=== PATIENT | female | born 1985 | race Caucasian/White ===

== ENCOUNTER 2018-04-16 10:16 | Outpatient (CLI) | payer OTHER, SELFPAY ==
[2018-04-17 11:45] LABS: Syphilis Serology (RPR) Negative (Negative)
[2018-04-17 12:22] LABS: HIV-1/2 Ag & Ab Screen Negative (NEGAT)
== END 2018-04-16 10:36 ==
PROVIDERS: Visit Provider Obstetrics & Gynecology
DX: Z72.51 High risk heterosexual behavior (principal); Z11.4 Encounter for screening for human immunodeficiency virus [HIV]
CPT/HCPCS: 36415; 87389; 86592

== ENCOUNTER 2018-04-16 12:27 | Outpatient (REF) | payer OTHER, SELFPAY ==
--- NOTE | 2018-04-16 09:50 | PAPFT_PTH ---
PATIENT: Carolyn Olivas LOC: [facility] U#:[id number] AGE/SX: 32/F ROOM: RE04/16/[address]: Aretha Duarte MD : 1985 BED: DIS: 04/16/2018 SPEC #: [id number] RECD: 04/16/18 12:49 STATUS: BECK REQ #: [id number] BRANDIN: 04/16/18 09:[address]: Aretha Duarte DEPT: [facility] Cytology RECD BY: Sera Castle ENTERED: 04/16/18 12:49 SP TYPE: PAPFT OT DR: None Tissues: 1 - CX/ENDOCX FOR PAP SMEARS Procedures: PAP THIN PREP/UVM Screening HPV DNA PROBE Comments: [id number]
[2018-04-17 14:12] LABS: Chlamydia Result Negative; GC Result Negative; Specimen Description CERVIX
== END 2018-04-16 12:47 ==
LOC: LBN 12:27
PROVIDERS: Visit Provider Obstetrics & Gynecology
DX: Z12.4 Encounter for screening for malignant neoplasm of cervix (principal); Z11.51 Encounter for screening for human papillomavirus (HPV); Z11.3 Encounter for screening for infections with a predominantly sexual mode of transmission; Z72.51 High risk heterosexual behavior
CPT/HCPCS: 87491; 87591; 88142; 87624

== ENCOUNTER 2019-03-21 16:04 | Outpatient (REF) | payer OTHER, SELFPAY | END 2019-03-21 16:24 | LOC: LBN 16:04 | PROVIDERS: Visit Provider Obstetrics & Gynecology | DX: B37.3 Candidiasis of vulva and vagina (principal) | CPT/HCPCS: 87102; 87206; 87480; 87510; 87660 ==

== ENCOUNTER 2021-08-18 08:57 | Outpatient (REF) | payer OTHER, SELFPAY ==
--- NOTE | 2021-08-18 08:30 | PAPFT_PTH ---
PATIENT: Carolyn Olivas LOC: [facility] U#:[id number] AGE/SX: 35/F ROOM: RE08/18/[address]: LISANDRO Dumont : 1985 BED: DIS: 08/18/2021 SPEC #: [id number] RECD: 08/18/21 13:04 STATUS: BECK DASH #: [id number] BRANDIN: 08/18/21 08:[address]: Belle Mae DEPT: [facility] Cytology RECD BY: Sera Castle Tissues: 1 - CX/ENDOCX FOR PAP SMEARS Procedures: PAP THIN PREP/UVM Screening HPV DNA PROBE Comments: [id number]
== END 2021-08-18 08:58 | disposition home or self-care (01) ==
LOC: LBN 08:57
PROVIDERS: Visit Provider Nurse Practitioner Family
DX: Z12.4 Encounter for screening for malignant neoplasm of cervix (principal); Z11.51 Encounter for screening for human papillomavirus (HPV)
CPT/HCPCS: 88142; 87624

== ENCOUNTER → 2023-01-30 08:47 | Outpatient (CLI) | payer OTHER, SELFPAY ==
--- NOTE | 2023-01-30 08:30 | DI.US_ITS ---
Exam(s) US OB 1ST TRIMESTER EXAM: US OB 1ST TRIMESTER CLINICAL HISTORY: spotting in , Z34.90, 020.9. COMPARISON: No exams were available for comparison TECHNIQUE: Transabdominal Transvaginal first trimester obstetrical ultrasound performed. FINDINGS: There is a single living intrauterine gestation. Estimated sonographic age based on crown-rump lengt h is 6 weeks 4 days. The yolk sac was visualized. heart rate is 124 beats per minute. Pelvic Measurments Uterus: 9.6 x 4.8 x 5.9 cm Rt Ovary: 3.4 x 2.2 x 3.1 cm Lt Ovary: 3.7 x 1.7 x 2.2 cm There is a corpus luteal cyst seen on the right ovary. IMPRESSION: Single living intrauterine gestation with estimated sonographic age is 6 weeks 4 days. DATA REPOSITORY:
[2023-01-30 14:27] LABS: HCG Quant, Pregnancy 32078 mIU/mL (1-3)
== END ==
PROVIDERS: Visit Provider Advanced Practice Midwife
DX: O20.9 Hemorrhage in early pregnancy, unspecified (principal); Z34.91 Encounter for supervision of normal pregnancy, unspecified, first trimester
CPT/HCPCS: 36415; 76801; 84702

== ENCOUNTER 2023-03-02 02:04 | Outpatient (CLI) | payer OTHER, SELFPAY ==
[2023-03-02 10:33] LABS: Panorama Kit Sent via Fed Ex
[2023-03-02 10:46] LABS: Abs Immature Grans 0.03 10^3/uL (0.0-0.06); Absolute Basophil Count 0.02 10^3/uL (0.0-0.2); Absolute Eosinophil Count 0.09 10^3/uL (0.0-0.7); Absolute Lymphocyte Count 1.29 10^3/uL (1.2-3.4); Absolute Monocyte Count 0.56 10^3/uL (0.1-0.8); Absolute Neutrophil Count 5.22 10^3/uL (1.2-6.7); Basophils % 0.3; Eosinophils % 1.2; HCT 41.7 % (36.0-46.0); HGB 14.6 g/dL (11.2-15.7); Immature Grans % 0.4; Lymphocytes % 17.9; MCH 32.5 pg (27.0-33.0); MCV 93 fL (80-95); MPV 8.4 fL (8.0-11.0); Monocytes % 7.8; Neutrophils % 72.4; Platelet Count 280 10^3/uL (130-400); RBC 4.49 10^6/uL (3.93-5.22); RDW-SD 41.2 fL; WBC 7.21 10^3/uL (4.4-10.8)
[2023-03-02 10:57] LABS: Glucose,1 Hr (Glucola) 77 mg/dL (80-140)
[2023-03-02 11:35] LABS: TSH (W/Ref FT4) 4.18 uIU/mL (0.36-3.74)
[2023-03-02 11:53] LABS: FREE T4 0.87 ng/dL (0.76-1.46)
[2023-03-05 09:28] LABS: Varicella IgG Antibody Positive (See Note)
[2023-03-05 09:33] LABS: Rubella IgG Ab (UVM) Positive (See Note)
[2023-03-05 09:50] LABS: Thyroperoxidase Antibody <28 U/mL (<=60)
[2023-03-05 10:57] LABS: Hepatitis B Surface Ag Negative (Negative)
[2023-03-05 11:22] LABS: HIV-1/2 Ag & Ab Screen Negative (Negative)
[2023-03-05 11:30] LABS: Hepatitis C Ab w Rflx HCV PCR Negative (Negative)
[2023-03-05 21:25] LABS: Syphilis IgG w/Reflex Nonreactive (Nonreactive)
[2023-03-07 17:32] LABS: Specimen WB Whole Blood
[2023-03-12 13:03] LABS: Result Summary NEGATIVE; Specimen WB Whole Blood
== END 2023-03-02 02:05 | disposition home or self-care (01) ==
LOC: LBO 02:04
PROVIDERS: Visit Provider Advanced Practice Midwife
DX: Z34.01 Encounter for supervision of normal first pregnancy, first trimester (principal); R79.89 Other specified abnormal findings of blood chemistry
CPT/HCPCS: 36415; 81220; 81222; 81329; 82950; 86787; 86803; 86850; 86900; 86901; 87340; 87389; 84439; 84443; 85025; 86376; 86762; 86780

== ENCOUNTER 2023-03-02 10:27 | Outpatient (REF) | payer OTHER, SELFPAY ==
[2023-03-02 11:58] LABS: *AMPHETAMINES SCREEN URINE Negative (Negative); *BARBITURATES SCREEN URINE Negative (Negative); *BENZODIAZEPINES SCREEN URINE Negative (Negative); Cannabinoids THC Negative (Negative); Cocaine Screen,Urine Negative (Negative); METHADONE URINE SCREEN Negative (Negative); OPIATES URINE SCREEN Negative (Negative)
[2023-03-02 12:02] LABS: Tricyclic Antidepressants Negative (Negative)
[2023-03-03 14:47] LABS: Chlamydia Result Negative (Negative); GC Result Negative (Negative)
[2023-03-07 13:04] LABS: Buprenorphine Negative ng/mL (Cutoff: 5.0); Norbuprenorphine Negative ng/mL (Cutoff: 2.5)
== END 2023-03-02 10:28 | disposition home or self-care (01) ==
LOC: LBN 10:27
PROVIDERS: Visit Provider Advanced Practice Midwife
DX: Z34.91 Encounter for supervision of normal pregnancy, unspecified, first trimester (principal)
CPT/HCPCS: 80307; 80348; 87491; 87591; 87086

== ENCOUNTER 2023-03-30 02:23 | Outpatient (CLI) | payer OTHER, SELFPAY ==
[2023-03-30 10:59] LABS: TSH (W/Ref FT4) 3.74 uIU/mL (0.36-3.74)
== END 2023-03-30 02:24 | disposition home or self-care (01) ==
LOC: LBO 02:23
PROVIDERS: Advanced Practice Midwife; Visit Provider Advanced Practice Midwife
DX: Z34.92 Encounter for supervision of normal pregnancy, unspecified, second trimester (principal); R79.89 Other specified abnormal findings of blood chemistry; R53.83 Other fatigue; Z3A.15 15 weeks gestation of pregnancy
CPT/HCPCS: 36415; 84443

== ENCOUNTER 2023-06-21 00:51 | Outpatient (CLI) | payer OTHER, SELFPAY ==
[2023-06-21 08:52] LABS: HCT 37.3 % (36.0-46.0); HGB 12.9 g/dL (11.2-15.7); MCH 33.9 pg (27.0-33.0); MCHC 34.6 % (32.0-36.0); MCV 98 fL (80-95); MPV 8.2 fL (8.0-11.0); Platelet Count 229 10^3/uL (130-400); RDW 13.2 % (11.7-14.6); RDW-SD 46.8 fL; WBC 9.66 10^3/uL (4.4-10.8)
[2023-06-21 09:01] LABS: Glucose,1 Hr (Glucola) 129 mg/dL (80-140)
[2023-06-21 09:16] LABS: TSH (W/Ref FT4) 2.85 uIU/mL (0.36-3.74)
[2023-06-21 09:59] LABS: Lab Add On Test DONE
== END 2023-06-21 00:52 | disposition home or self-care (01) ==
LOC: LBO 00:51
PROVIDERS: Advanced Practice Midwife; Visit Provider Advanced Practice Midwife
DX: O26.899 Other specified pregnancy related conditions, unspecified trimester (principal); Z67.91 Unspecified blood type, Rh negative; R79.89 Other specified abnormal findings of blood chemistry
CPT/HCPCS: 36415; 82950; 85027; 86850; 90384; 84443

== ENCOUNTER 2023-07-04 09:25 | Outpatient (CLI) | payer OTHER, SELFPAY ==
[2023-07-04 09:35] VITALS: BP 120/70; PULSE 90; TEMP 36.8
--- NOTE | 2023-07-04 15:03 | W.OBNST ---
Date of service: 07/04/23 Time of Service: 10:00 NST Evaluation Reason for NST Reasons for Nonstress Test: DECREASED MOVEMENT Test and Monitor Explained Test/Monitor Explained: Test Explained and Monitor Explained Vital Signs Blood Pressure: 120/70 Pulse: 90 Temperature: 98.2 F NST Information Date on Monitor: 07/04/23 Time on Monitor: 09:32 Date off Monitor: 07/04/23 Time off Monitor: 10:06 Total Time on Monitor: 34 NST Interventions: PO Hydration NST Evaluation Patient States Movement: Present FHR Baseline: 155 Variability: Moderate 6-25 bpm Accelerations: 10x10 Decelerations: None NST Results: Reactive Note Ultrasound Done: N/A. NST Note Note: NST is reassuring and reactive for 28w5d. NST Reviewed and Verified by: Myriam Mcdaniel
[2023-07-04 15:04] VITALS: BP 120/70; PULSE 90; TEMP 36.8
== END 2023-07-04 10:10 ==
LOC: BCD 09:27 → OBS 09:34
PROVIDERS: Visit Provider Advanced Practice Midwife
DX: O36.8131 Decreased fetal movements, third trimester, fetus 1 (principal); Z3A.28 28 weeks gestation of pregnancy
CPT/HCPCS: 59025

== ENCOUNTER 2023-08-03 02:39 | Outpatient (CLI) | payer OTHER, SELFPAY ==
[2023-08-03 12:13] LABS: TSH (W/Ref FT4) 2.53 uIU/mL (0.36-3.74)
== END 2023-08-03 02:40 | disposition home or self-care (01) ==
LOC: LBO 02:39
PROVIDERS: Visit Provider Advanced Practice Midwife
DX: R79.89 Other specified abnormal findings of blood chemistry (principal)
CPT/HCPCS: 36415; 84443

== ENCOUNTER 2023-08-24 13:49 | Outpatient (REF) | payer OTHER, SELFPAY | END 2023-08-24 13:50 | disposition home or self-care (01) | LOC: LBN 13:49 | PROVIDERS: PCP Advanced Practice Midwife; Visit Provider Advanced Practice Midwife | DX: Z34.93 Encounter for supervision of normal pregnancy, unspecified, third trimester (principal); Z36.85 Encounter for antenatal screening for Streptococcus B; Z3A.36 36 weeks gestation of pregnancy | CPT/HCPCS: 87081 ==

== ENCOUNTER 2023-09-04 05:54 | Outpatient (CLI) | payer OTHER, SELFPAY ==
[2023-09-04 16:52] VITALS: BP 115/72; PULSE 65; TEMP 36.8
[2023-09-04 17:33] VITALS: BP 115/72; PULSE 65
--- NOTE | 2023-09-05 08:08 | W.OBNST ---
Date of service: 09/04/23 Time of Service: 17:40 NST Evaluation Reason for NST Reasons for Nonstress Test: GESTATIONAL HYPERTENSION Gestational Age Gestational Age in Weeks and Days: 37 Weeks and 4Days Test and Monitor Explained Test/Monitor Explained: Test Explained, Monitor Explained and Patient Verbalized Understanding Vital Signs Blood Pressure: 115/72 Pulse: 65 Temperature: 98.2 F Urine Results Urine Protein: Negative Urine Ketones: Negative Urine Glucose: Negative Urine Blood: Negative NST Information Date on Monitor: 09/04/23 Time on Monitor: 17:10 Date off Monitor: 09/04/23 Time off Monitor: 17:53 Total Time on Monitor: 43 NST Interventions: None Contraction Frequency: 7-11 NST Evaluation Patient States Movement: Present FHR Baseline: 155 Variability: Moderate 6-25 bpm Decelerations: None NST Results: Reactive Note Ultrasound Done: N/A. NST Note Note: NST tracing was difficult to maintain due to frequent movement. NST being done to continue to assess BP which is normal. Returns to office this week, can repeat if any concerns. Overall tracing is reassuring. UBALDO NST Reviewed and Verified by: Myriam Mcdaniel
[2023-09-05 08:10] VITALS: BP 115/72; PULSE 65; TEMP 36.8
== END 2023-09-04 18:08 ==
LOC: BCD 06:15 → OBS 16:51
PROVIDERS: PCP Advanced Practice Midwife; Visit Provider Advanced Practice Midwife
DX: O13.3 Gestational [pregnancy-induced] hypertension without significant proteinuria, third trimester (principal); Z3A.38 38 weeks gestation of pregnancy
CPT/HCPCS: 59025

== ENCOUNTER 2023-09-07 08:55 | Outpatient (CLI) | payer OTHER, SELFPAY ==
[2023-09-07 16:16] VITALS: BP 120/76; PULSE 74; TEMP 36.7
[2023-09-07 16:19] VITALS: BP 120/76; PULSE 74
[2023-09-07 17:29] VITALS: BP 120/76; PULSE 74; TEMP 36.7
--- NOTE | 2023-09-07 17:29 | W.OBNST ---
Date of service: 09/07/23 Time of Service: 17:29 NST Evaluation Reason for NST Reasons for Nonstress Test: CHRONIC HYPERTENSION Gestational Age Gestational Age in Weeks and Days: 38 Weeks and 0Days Test and Monitor Explained Test/Monitor Explained: Test Explained and Monitor Explained Vital Signs Blood Pressure: 120/76 Pulse: 74 Temperature: 98.1 F NST Information Date on Monitor: 09/07/23 Time on Monitor: 16:16 Date off Monitor: 09/07/23 Time off Monitor: 16:54 Total Time on Monitor: 38 NST Interventions: None NST Evaluation Patient States Movement: Present FHR Baseline: 140 Variability: Moderate 6-25 bpm Accelerations: 15x15 Decelerations: None NST Results: Reactive Note Ultrasound Done: N/A. NST Note Note: Normotensive, reactive NST. RTO 1 wk NST Reviewed and Verified by: Luisa Parmar
== END 2023-09-07 17:39 | disposition home or self-care (01) ==
LOC: BCD 08:55 → OBS 16:08
PROVIDERS: PCP Advanced Practice Midwife; Visit Provider Advanced Practice Midwife
DX: O13.3 Gestational [pregnancy-induced] hypertension without significant proteinuria, third trimester (principal); Z3A.38 38 weeks gestation of pregnancy
CPT/HCPCS: 59025

== ENCOUNTER 2023-09-13 09:30 | Outpatient (CLI) | payer OTHER, SELFPAY ==
[2023-09-13 09:47] VITALS: BP 121/77; PULSE 71; TEMP 36.8
[2023-09-13 09:52] VITALS: BP 119/75; PULSE 75
--- NOTE | 2023-09-13 10:30 | W.OBNST ---
Date of service: 09/13/23 Time of Service: 10:31 NST Evaluation Reason for NST Reasons for Nonstress Test: GESTATIONAL HYPERTENSION Gestational Age Gestational Age in Weeks and Days: 38 Weeks and 6Days Test and Monitor Explained Test/Monitor Explained: Test Explained, Monitor Explained and Patient Verbalized Understanding Vital Signs Blood Pressure: 121/77 Pulse: 71 Temperature: 98.2 F NST Information Date on Monitor: 09/13/23 Time on Monitor: 09:25 Date off Monitor: 09/13/23 Time off Monitor: 10:10 Total Time on Monitor: 45 NST Interventions: None NST Evaluation Patient States Movement: Present FHR Baseline: 150 Variability: Moderate 6-25 bpm Accelerations: 15x15 Decelerations: None Note Ultrasound Done: N/A. NST Note Note: Normotensive and reactive NST. RTO 1 wk for 40 wk appt NST Reviewed and Verified by: Luisa Parmar
[2023-09-13 10:32] VITALS: BP 121/77; PULSE 71; TEMP 36.8
== END 2023-09-13 10:15 | disposition home or self-care (01) ==
LOC: BCD 09:41 → OBS 09:46
PROVIDERS: PCP Advanced Practice Midwife; Referring Provider Advanced Practice Midwife; Visit Provider Advanced Practice Midwife
DX: O13.3 Gestational [pregnancy-induced] hypertension without significant proteinuria, third trimester (principal); Z3A.38 38 weeks gestation of pregnancy
CPT/HCPCS: 59025

== ENCOUNTER 2023-09-16 05:00 | Outpatient (CLI) | payer OTHER, SELFPAY ==
[2023-09-16 04:47] VITALS: BP 117/75; PULSE 75
--- NOTE | 2023-09-16 05:40 | W.OBNST ---
Date of service: 09/16/23 Time of Service: 05:40 NST Evaluation Reason for NST Reasons for Nonstress Test: OTHER, SEE COMMENT Reason for NST Other: ctx Gestational Age Gestational Age in Weeks and Days: 39 Weeks and 2Days Test and Monitor Explained Test/Monitor Explained: Test Explained, Monitor Explained and Patient Verbalized Understanding Vital Signs Blood Pressure: 117/75 Pulse: 75 Urine Results Urine Protein: Negative Urine Ketones: Negative Urine Glucose: Negative Urine Blood: Positive NST Information Date on Monitor: 09/16/23 Time on Monitor: 04:45 Date off Monitor: 09/16/23 Time off Monitor: 05:27 Total Time on Monitor: 42 NST Interventions: None Contraction Frequency: 3-4 NST Evaluation Patient States Movement: Present FHR Baseline: 135 Variability: Moderate 6-25 bpm Accelerations: 15x15 Decelerations: None NST Results: Reactive Note Ultrasound Done: N/A. NST Note Note: NST is reactive and reassuring, will rest and reassess for probable discharge to home, not in active labor. NST Reviewed and Verified by: Myriam Mcdaniel
[2023-09-16 05:41] VITALS: BP 117/75; PULSE 75
[2023-09-16] MEDS: Zolpidem 5 MG TAB PO (05:58)
[2023-09-16 09:53] VITALS: BP 120/80; PULSE 69; RESP 16; TEMP 36.5; O2SAT 99
--- NOTE | 2023-09-16 10:23 | W.PM.OBDISCH ---
Date of service: 09/16/23 Time of Service: 10:23 DS: Diagnosis Discharge Diagnosis (1) Irregular uterine contractions: Status: Acute Asessment and Plan: 1. Carolyn presented for NST due to prodromal labor, and due to weather conditions stayed the night after taking a dose of ambien 5mg for rest. 2. Discharged to home after waking not in active labor. 3. A single dose of 10 mg Ambien was sent to her pharmacy if she has difficulty sleeping another night before delivery, reviewed proper use and warning signs 4. Reviewed signs of active labor and when to call/contact CNM [employer] bi consultant 5. If not in active labor this week has appointment on 09/20 in office. Discharge Plan Disposition Patient Disposition: Home Condition: Good Discharge Details Reason For Visit: Rule out labor Admit Date/Time: 09/16/23 04:45 Admit Provider: Myriam Mcdaniel Attending Provider: Myriam Mcdaniel Primary Care Provider: Myriam Underwood Hospital Course Hospital Course: Not in active labor. Reassuring status on NST. Was given Ambien 5mg PO for sleep and had 6-7 hours of good sleep. Preferred discharge to home as she is not in labor this morning. Will keep office appointment this week. A single dose of Ambien 10 mg was sent to her pharmacy for another night of rest if needed. Home Meds and New Rx's Prescriptions: Continued docusate sodium [Colace] 100 mg capsule 100 mg PO BID folic acid 0.8 mg capsule 0.8 mg PO DAILY Gummies 400 mcg-35 mg- 25 mg-5 mg tablet,chewable 1 tab PO DAILY ferrous sulfate 325 mg (65 mg iron) tablet 325 mg PO DAILY cholecalciferol (vitamin D3) 25 mcg (1,000 unit) capsule 25 mcg PO DAILY Hold Instructions: Pt Stopped/Never Started sertraline 50 mg tablet 100 mg PO DAILY aspirin [Adult Aspirin Regimen] 81 mg tablet,delayed release (DR/EC) 81 mg PO DAILY Fiber Gummies 2 gram tablet,chewable PO Hold Instructions: Pt Stopped/Never Started ascorbic acid (vitamin C) 250 mg tablet 250 mg PO DAILY Hold Instructions: Pt Stopped/Never Started omega 1-yvn-dhv-fish oil [Fish Oil] 60-90-500 mg capsule 1 cap PO DAILY Hold Instructions: Pt Stopped/Never Started zolpidem [Ambien] 10 mg tablet 10 mg PO QHS Qty: 1 0RF Discharge Instructions Instructions: Early Labor Signs (DC) Activity:: Activity as Tolerated Equipment/Supplies:: No Equipment Needed Diet:: As Tolerated Discharge Orders Discharge Orders: Discharge Order (Routine); Ordered 09/16/23 Ordered By: Myriam Mcdaniel OB:DS Summary Summary Procedures: N/A antepartum discharge. Contraception Discussed Contraception Discussed: No (will review plan after delivery), Status at Discharge Functional status at discharge: independent ambulation Overall status at discharge: patient is back to baseline Mental Status: mental status grossly normal Speech and Movement: speech and movement normal Mood: congruent mood Affect: normal affect Time Spent with Patient providing and/or coordinating discharge services: Less than 30 minutes Quality:SDOH Health Related Social Needs: No Data to Display Exam Physical Exam Vital signs: Temp Pulse Resp BP Pulse Ox 97.7 F 69 16 120/80 99 09/16/23 09:53 09/16/23 09:53 09/16/23 09:53 09/16/23 09:53 09/16/23 09:53 Vital Signs Reviewed: Yes Constitutional Constitutional: no acute distress and obese HEENT Exam HEENT Exam: Normal Neck Exam Neck Exam: Normal (visual exam) Respiratory Exam Respiratory Exam: Normal Cardiovascular Exam Cardiovascular Exam: Normal Abdominal Exam Abdomen: Other (normal, gravid uterus, size equals dates) Exam Comments: Carolyn defers VE as she is not having strong regular contractions or LOF. Extremities Exam Extremity Exam: Normal Skin Exam Skin Exam: Normal Neurological Exam Neurological Exam: Normal Psychiatric Exam Psychiatric Exam: Normal PFSH All Active Problems Irregular uterine contractions (Acute) COVID-19 affecting , antepartum (Acute) @ 34 wks Right sciatic nerve pain (Acute) Rh negative state in antepartum period (Acute) Advanced maternal age, 1st (Acute) Bleeding in early (Acute) (Acute) Medical History Elevated TSH Left orbit fracture Migraine Pre-conception counseling Vulvar pruritus prior to menses. Rx with OTC vaginal antifungal. 10/2016. with vulvitis sx. Neg vulvar Cx. Rx Terazol. PO Fluconazole. 05/01/17 Vag path screen____ Rx: OTC antifungal cream, PO Fluconazole 150mg/week x6w. 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 Pets and animals: Yes Pets and animals: dog(s) Sexually active: Yes Do you think of yourself as: straight/heterosexual Current gender identity: male What type of physical activity do you participate in: walking Duration: 45-60 minutes/day Frequency: 3-4 times per week Seatbelt use: always Helmet use: Yes Drive intox or ride w/intox fuel truck driver: No Female Reproductive History Menstrual control method: pills History History 1 Para 0 Hx # Term Pregnancies 0 Multiple births 0 Hx # Pregnancies 0 Ectopic pregnancies 0 AB induced 0 Hx Number of Living Children 0 AB spontaneous 0 DS: Data Vitals/I&O Vitals and I&O: Vital Signs Temperature 97.7 F 09/16/23 09:53 Temperature Source Oral 09/16/23 09:53 Pulse 69 09/16/23 09:53 Pulse 75 09/16/23 05:41 Respiratory Rate 16 09/16/23 09:53 Blood Pressure 120/80 09/16/23 09:53 Blood Pressure 117/75 09/16/23 05:41 Pulse Oximetry 99 09/16/23 09:53 Intake & Output 09/15/23 09/15/23 09/16/23 11:59 23:59 11:59 Weight 231 lb
== END 2023-09-16 11:00 ==
LOC: OBS 10:22 → BCD 09-17 13:01
PROVIDERS: PCP Advanced Practice Midwife; Visit Provider Advanced Practice Midwife

== ENCOUNTER 2023-09-16 16:59 | Inpatient (IN) | payer OTHER, SELFPAY ==
[2023-09-16] VITALS (122 sets, daily range): BP systolic 113–145; BP diastolic 62–92; PULSE 64–109; RESP 16–20; TEMP 36.6–37.5; O2SAT 86–100; BMI 37.3
--- NOTE | 2023-09-16 18:23 | W.PM.OBHPL1 ---
Date of service: 09/16/23 Time of Service: 18:23 Assessment and Plan Assessment and plan (1) Normal labor: Status: Acute Assessment and plan: 1. Admit, CBC, type and screen and CMP obtained 2. Discussed pain management options, will try behavioral methods of position changes and then tub for hydrotherapy, she is planning epidural at some point 3. IV placed due to desire for epidural later 4. Will support labor and expect NVD. KH OB-HPI Labor/Delivery History of Present Illness Reason for Visit: RULE OUT LABOR Chief Complaint: Uterine Contractions; Suspected Rupture of Membranes , Associated Signs and Symptoms of Suspected ROM: gush of fluid on arrival 1744. HERIBERTO Calculator Estimated Delivery Date Method Current WG Current Estimate 09/21/23 LMP (Certain) 39w 2d Other Estimates 09/21/23 Ultrasound #1 39w 2d History of Present Expected Delivery Route/Plan - CNM FOB/ - Rodo Jade (first child) Doesn't want to know gender before Would like to know who the MD property utilization officer is when in labor. Thinking will want epidural. GBS negative Specific Issues/Plan 1. First trimester spotting - US and QHCG 01/30/23- WNL 2. initial TSH 4.18, Free T4 0.87, TPO 28 2a. TSH 12/07/22 4.02/T4 0.81, repeat 15-16 wks per MD consult- TSH 3.74, Repeat @ 27 wks= nml @ 2.85 3. AMA, accepts MFM and Level II US at [facility]- WNL 4. BMI 30.6, early glucose = 77, 28 weeks- 129 5. Low dose ASA due to AMA, BMI, primigravida 6. A neg, Rhogam 28 wks, given 06/21/23 7. Genetic testing options - cfDNA low risk x5, SMA & CF neg, AFP declined 8. Constipation- Taking Colace 100 mg BID, will add magnesium 9. COVID+ at 34 wks, Paxlovid Rx'ed, pt reports mild sx. Assessment: History Reviewed & Current Narrative: Carolyn robledo Rodo present for labor assessment. She has been having prodromal labor for approximately 36 hours with some breaks but at 1500 today contractions became very strong and regular. On arrival at , 1744, she had a gush of fluid. She has been leaking clear fluid since that time with some old bloody discharge as well. Working well with contractions. She is wanting to try using the tub for pain relief at this time but also interested in epidural in active phase. She prefer IV be placed at this time in preparation. Review of Systems All systems reviewed & are unremarkable except as noted in HPI and below (no other concerns) PFSH All Active Problems (Updated 09/16/23 @ 18:32 by Myriam Mcdaniel CNM) Normal labor (Acute) Irregular uterine contractions (Acute) COVID-19 affecting , antepartum (Acute) @ 34 wks Right sciatic nerve pain (Acute) Rh negative state in antepartum period (Acute) Advanced maternal age, 1st (Acute) Bleeding in early (Acute) (Acute) Medical History Elevated TSH Left orbit fracture Migraine Pre-conception counseling Vulvar pruritus prior to menses. Rx with OTC vaginal antifungal. 10/2016. with vulvitis sx. Neg vulvar Cx. Rx Terazol. PO Fluconazole. 05/01/17 Vag path screen____ Rx: OTC antifungal cream, PO Fluconazole 150mg/week x6w. 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 Pets and animals: Yes Pets and animals: dog(s) Sexually active: Yes Do you think of yourself as: straight/heterosexual Current gender identity: male What type of physical activity do you participate in: walking Duration: 45-60 minutes/day Frequency: 3-4 times per week Seatbelt use: always Helmet use: Yes Drive intox or ride w/intox motor bus driver: No Female Reproductive History Menstrual control method: pills History History 1 Para 0 Hx # Term Pregnancies 0 Multiple births 0 Hx # Pregnancies 0 Ectopic pregnancies 0 AB induced 0 Hx Number of Living Children 0 AB spontaneous 0 Meds Allergies and Home Medications Allergies Allergy/AdvReac Type Severity Reaction Status Date / Time No Known Allergies Allergy Verified 09/16/23 18:30 Home Medications Medication Instructions Recorded Confirmed Type PNV 153-FA 400 mcg-om3 35 mg-dha 1 tab PO DAILY 01/16/23 09/16/23 History 25 mg-epa 5 mg-fish oil chew tablet ( Gummies) folic acid 0.8 mg capsule 0.8 mg PO DAILY 01/16/23 09/16/23 History cholecalciferol (vitamin D3) 25 25 mcg PO DAILY 01/30/23 09/16/23 History mcg (1,000 unit) capsule ferrous sulfate 325 mg (65 mg 325 mg PO DAILY 01/30/23 09/16/23 History iron) tablet sertraline 50 mg tablet 100 mg PO DAILY 03/02/23 09/16/23 History ascorbic acid (vitamin C) 250 mg 250 mg PO DAILY 03/30/23 09/16/23 History tablet aspirin 81 mg tablet,delayed 81 mg PO DAILY 03/30/23 09/16/23 History release (Adult Aspirin Regimen) inulin 2 gram chewable tablet 2 g PO DAILY 03/30/23 09/16/23 History (Fiber Gummies) omega 1-mgm-pyr-fish oil 60 mg-90 1 cap PO DAILY 05/24/23 09/16/23 History mg-500 mg capsule (Fish Oil) docusate sodium 100 mg capsule 100 mg PO BID 06/21/23 09/16/23 History (Colace) zolpidem 10 mg tablet (Ambien) 10 mg PO QHS #1 tab 09/16/23 09/16/23 Rx Exam Physical Exam Vital signs: Pulse BP 84 143/70 H 09/16/23 18:10 09/16/23 17:58 Vital Signs Reviewed: Yes Constitutional Constitutional: mild distress (works well with contractions and reinforcement of relaxation) and obese Detailed Labor and Delivery Exam Dilation: 3 Effacement (%): 100 station: -1 Position: BUTCH Cervix position: mid Consistency: soft Barnes Score: Cervical Points Exam 0 1 2 3 Dilation Closed 1-2cm 3-4 cm 5-6cm Effacement 0-30% 40-50% 60-70% 80% Consistency Firm Medium Soft Station -3 -2 -1,0 +1,+2 Position Posterior Mid Anterior BARNES Score(Cervical Ripeness Score): 10 Amniotic Membrane Status: Ruptured Rupture Method: Spontaneous Amniotic Fluid: Clear Contraction Frequency(min): 3-4 Contraction Duration(sec): 60 Contraction Intensity: Moderate Fetus A Heart Rate Baseline: 145 Monitor Accelerations: 15 X 15 Monitor Decelerations: None Variability: Moderate (6-25 BPM) Categories: Category I Est. Weight: 8 lb Date of Membrane Rupture: 09/16/23 Time of Membrane Rupture: 17:45 HEENT Exam HEENT Exam: Normal (wear glasses to correct vision) Neck Exam Neck Exam: Normal (visual exam) Chest/Brest/Axilla Exam Chest Exam: Normal Breast Exam Breast Exam: Normal (visual exam only) Respiratory Exam Respiratory Exam: Normal Cardiovascular Exam Cardiovascular Exam: Normal (slight BP elevation, having regular contractions) Abdominal Exam Abdominal Exam: Normal (gravid uterus, size equals dates) Rectal Exam Rectal Exam: Not Done Exam Exam: Normal (leaking clear fluid and having some old brown vaginal mucous as well) Extremities Exam Extremities Exam: Abnormal (1+ edema of feet and ankles) Back/Spine/Pelvis Exam Back Exam: Normal (visual exam) Pelvis Adequate: Yes Skin Exam Skin Exam: Normal Neurological Exam Neurological Exam: Normal Psychiatric Exam Psychiatric Exam: Normal Results Results Group Beta Strep: Negative Blood Type: A- Rubella Status: Immune Varicella Immunity: Immune Lab Results: GC CT neg, Hep B & C neg, Syphilis neg, HIV neg, SMA and CF trait neg, cfDNA low risk, early 1 hour GTT 77, 1 hour GTT at 28 weeks 129, UDS neg. KH Risk Assessment Risk for Shoulder Dystocia Historical/Initial OB: NEGATIVE FOR: Pelvic Abnormality, Pre- BMI>30, Previous Shoulder Dystocia or Previous Macrosomia 36 Weeks: NEGATIVE FOR: Current Gestational DM, EFW>4500gms or Maternal Weight Gain>40lbs 40 Weeks: POSTIVE FOR: Maternal Weight Gain >40lb (45 lb gain); NEGATIVE FOR: EFW> 4500 gms or Post Dates Delivery Plan @ 36wks: spont labor, Delivery Plan @ 40 wks: some increased risk due to weight gain Risk for Pre-Eclampsia Yes, if one or more: NEGATIVE FOR: Hx Pre-E/Gest HTN, Chronic HTN, Multiple Gestation, Pre-gestational DM, Renal Disease, Systemic Lupus or APA Syndrome Yes, if 2 or more: POSITIVE FOR: Nulliparity, Age>= 35 yrs and BMI>30 Risk for Post- Hemorrhage Initial: NEGATIVE FOR: Multiple Gestation, Previous PPH, Known Clotting Deficiency, Grand Multiparity or Anticoagulation 36 Weeks: NEGATIVE FOR: Anemia, hgb<10, Low platelets(thrombocytopenia), Gestational HTN or Pre-E, Polyhydraminios or EFW>4500gms 40 Weeks: NEGATIVE FOR: Anemia, hgb<10, Low platelets (thrombocytopenia), Gestation HTN or Pre-E, Polyhydraminios or EFW>4500gms Counseled re: Active Management: Yes Date/Initials: 09/16/23 Risks Reviewed Risks Reviewed Upon Admission: Yes (some risk for SD and PPH due to weight gain and long prodromal labor)
[2023-09-16 18:40] LABS: HCT 43.5 % (36.0-46.0); MCH 34.6 pg (27.0-33.0); MCHC 34.5 % (32.0-36.0); MCV 101 fL (80-95); MPV 9.4 fL (8.0-11.0); Platelet Count 256 10^3/uL (130-400); RBC 4.33 10^6/uL (3.93-5.22); RDW 13.4 % (11.7-14.6); RDW-SD 49.7 fL; WBC 11.47 10^3/uL (4.4-10.8)
--- NOTE | 2023-09-16 18:42 | PGE_ITS ---
Date of service: 09/16/23 Time of Service: 18:42 Objective Temp Pulse Resp BP Pulse Ox 97.9 F 84 20 143/70 H 98 09/16/23 18:07 09/16/23 18:10 09/16/23 18:07 09/16/23 18:07 09/16/23 18:07 Subjective Interval history since last seen: Carolyn was in tub for short period of time and has now requested epidural. SOW MANAGER will be notified by Superviosr. UBALDO
[2023-09-16 18:56] LABS: ALT 17 U/L (14-59); AST 24 U/L (15-37); Albumin 2.5 g/dL (3.4-5.0); Alkaline Phosphatase 230 U/L (46-116); BUN 11 mg/dL (7-18); Bilirubin, Total 0.3 mg/dL (0.2-1.0); CREATININE 0.6 mg/dL (0.55-1.02); Calcium 8.5 mg/dL (8.5-10.1); Chloride 104 mmol/L (98-107); Estimated GFR 119.23 (mL/min/1.73m2); Glucose 87 mg/dL (74-106); Potassium 4.2 mmol/L (3.5-5.1); Sodium 137 mmol/L (136-145); Total Protein 6.9 g/dL (6.4-8.2)
[2023-09-16] MEDS: Normal Saline Flush 10 ML SYR IVP (19:00)
[2023-09-16] MEDS: Lactated Ringers 1,000 ML 125 ML IV (19:00)
--- NOTE | 2023-09-16 19:04 | ANES.PREOP_ITS ---
General Info Date of Service Date Performed: 09/16/23 Height: 5 ft 6 in Weight: 104.78 kg Body Mass Index (BMI): 37.3 Meds Allergies and Home Medications Allergies Allergy/AdvReac Type Severity Reaction Status Date / Time No Known Allergies Allergy Verified 09/16/23 18:30 Home Medication Medication Instructions Recorded PNV 153-FA 400 mcg-om3 35 mg-dha 1 tab PO DAILY 01/16/23 25 mg-epa 5 mg-fish oil chew tablet ( Gummies) folic acid 0.8 mg capsule 0.8 mg PO DAILY 01/16/23 cholecalciferol (vitamin D3) 25 25 mcg PO DAILY 01/30/23 mcg (1,000 unit) capsule ferrous sulfate 325 mg (65 mg 325 mg PO DAILY 01/30/23 iron) tablet sertraline 50 mg tablet 100 mg PO DAILY 03/02/23 ascorbic acid (vitamin C) 250 mg 250 mg PO DAILY 03/30/23 tablet aspirin 81 mg tablet,delayed 81 mg PO DAILY 03/30/23 release (Adult Aspirin Regimen) inulin 2 gram chewable tablet 2 g PO DAILY 03/30/23 (Fiber Gummies) omega 9-dyl-dma-fish oil 60 mg-90 1 cap PO DAILY 05/24/23 mg-500 mg capsule (Fish Oil) docusate sodium 100 mg capsule 100 mg PO BID 06/21/23 (Colace) zolpidem 10 mg tablet (Ambien) 10 mg PO QHS #1 tab 09/16/23 Current Visit Medications: Current Medications Generic Name Dose Route Start Last Admin Trade Name Freq PRN Reason Stop Dose Admin Fentanyl/Ropivacaine 200 ml 09/16/23 18:15 Fentanyl/Ropivacaine 2 Mcg/Ml And 0.1% 200 Ml Cadd Cassette EP DIRECTED [facility] Ringer's Solution 1,000 mls @ 125 mls/hr 09/16/23 18:15 IV INFUSION [facility] IV Miscellaneous Supplies 1 each 09/16/23 18:15 Iv Access IV DIRECTED [facility] Ondansetron HCl 4 mg 09/16/23 18:05 Ondansetron 4 Mg/2 Ml Vial IVP Q4H PRN PRN Sodium Chloride 0 ml 09/16/23 18:05 Normal Saline Flush 10 Ml Syr IVP PRN PRN Sodium Chloride 0 ml 09/16/23 20:00 Normal Saline Flush 10 Ml Syr IVP BID LIZZY Sodium Chloride 0 ml 09/16/23 18:05 Normal Saline 10 Ml Vial IJ DIRECTED PRN PFSH Active Problems Active Problems: Problem Status Onset Code Normal labor O80, Z37.9 Irregular uterine contractions O47.9 COVID-19 affecting , antepartum O98.519, U07.1 Right sciatic nerve pain M54.31 Rh negative state in antepartum period O26.899, Z67.91 Advanced maternal age, 1st O09.519 Bleeding in early O20.9 Z34.90 Medical History Medical History Elevated TSH Left orbit fracture Migraine Pre-conception counseling Vulvar pruritus prior to menses. Rx with OTC vaginal antifungal. 10/2016. with vulvitis sx. Neg vulvar Cx. Rx Terazol. PO Fluconazole. 05/01/17 Vag path screen____ Rx: OTC antifungal cream, PO Fluconazole 150mg/week x6w. Surgical History Surgical History [place] teeth removed History of tonsillectomy and adenoidectomy Tobacco Smoking/Tobacco Use Status: Never Substance Use Substance use type: does not use Prental History History 2 1 Para 0 Hx # Term Pregnancies 0 Multiple births 0 Hx # Pregnancies 0 Ectopic pregnancies 0 AB induced 0 Hx Number of Living Children 0 AB spontaneous 0 Vital Signs and Lab Results Vital Signs Most Recent Vital Signs in EMR: Most Recent Vital Signs Temp Pulse Resp BP Pulse Ox 36.6 C 84 20 143/70 H 98 09/16/23 18:07 09/16/23 18:10 09/16/23 18:07 09/16/23 18:07 09/16/23 18:07 Lab Results 09/16/23 18:20 09/16/23 18:20 Blood Type / Crossmatch: 2 Patient ABO/Rh A Negative 09/16/23 Antibody Screen NEGATIVE 09/16/23 Complete Blood Count: 2 White Blood Count 11.47 10^3/uL (4.4-10.8) H 09/16/23 18:20 Red Blood Count 4.33 10^6/uL (3.93-5.22) 09/16/23 18:20 Hemoglobin 15.0 g/dL (11.2-15.7) 09/16/23 18:20 Hematocrit 43.5 % (36.0-46.0) 09/16/23 18:20 Platelet Count 256 10^3/uL (130-400) 09/16/23 18:20 Complete Metabolic Panel: 2 Sodium 137 mmol/L (136-145) 09/16/23 18:20 Potassium 4.2 mmol/L (3.5-5.1) 09/16/23 18:20 Chloride 104 mmol/L (98-107) 09/16/23 18:20 Carbon Dioxide 21.0 mmol/L (21.0-32.0) 09/16/23 18:20 BUN 11 mg/dL (7-18) 09/16/23 18:20 Creatinine 0.6 mg/dL (0.55-1.02) 09/16/23 18:20 Est GFR (CKD-EPI 2020) 119.23 (mL/min/1.73m2) 09/16/23 18:20 Calcium 8.5 mg/dL (8.5-10.1) 09/16/23 18:20 Albumin 2.5 g/dL (3.4-5.0) L 09/16/23 18:20 Glucose 87 mg/dL (74-106) 09/16/23 18:20 Liver Function Panel: 2 Alanine Aminotransferase (ALT/SGPT) 17 U/L (14-59) 09/16/23 18: 20 Aspartate Amino Transf (AST/SGOT) 24 U/L (15-37) 09/16/23 18:20 Coagulation Panel: 2 No Data to Display Cardiac Panel: 2 No Data to Display Arterial Blood Gas: 2 No Data to Display Venous Blood Gas: 2 No Data to Display Pancreas Panel: 2 No Data to Display Thyroid Panel: 2 No Data to Display Infectious Disease: 2 No Data to Display Blood Cultures: 2 No Data to Display Toxicology Panel: 2 No Data to Display Panel: 2 No Data to Display Anesthesia Assessment and Plan Anesthesia History Personal History: No History of Anesthesia Complications Family History: No Family History of Anesthesia Complications Exercise Tolerance Exercise Tolerance: Metabolic Equivalents>4 Pertinent Negatives Pertinent Negatives: No Symptoms of GERD, No Major Cardiovascular Symptoms or Complaints, No Major Pulmonary Symptoms or Complaints and No History of CVA/TIA Cardiac & Pulmonary Exam Cardiac Exam: Normal S1/S2 Heart Sounds Pulmonary Exam: Clear Bilateral Breath Sounds Implantable Cardiac Device Does patient have a Pacemaker or an ICD?: No Airway Exam Known Difficult Airway: No Mallampati Class: 2 Mouth Opening: Normal (> 3cm) Thyromental Distance: Greater than 3 cm Neck Range of Motion: Full ROM Neck Circumference: Normal Teeth Condition: Normal Dentition ASA Classification ASA Score: ASA 2 Emergency Case?: No NPO Status NPO Status: NPO Clears >2 hours, Solids >8 hours Status Status: Confirmed Anesthesia Plan Resuscitation Status: Full Code Anesthesia Technique: Epidural Anesthesia Airway Planned: Natural Airway Pain Management: Surgeon and patient request nerve block Monitors Used: Standard Monitors
[2023-09-16] MEDS: FentaNYL/ROPIvacaine 2 mcg/ml and 0.1% 200 ML CADD Cassette EP (19:42)
--- NOTE | 2023-09-16 19:49 | ANES.NEUR_ITS ---
Epidural/Spinal Catheter Date Performed: 09/16/23 Procedure Start: 07:24 Procedure Stop: 07:43 Requesting Provider: Myriam Mcdaniel Procedure Location: Obstetrics Reason Performed: Labor Epidural Standard Monitors Applied: Blood Pressure, SpO2 and See EMR for corresponding vital signs Patient Position: Sitting Sedation Given (Indicate Dose Given): No Sedation given Patient Mental Status: Awake Sterility: Hand Hygiene, Surgical Cap, Surgical Mask, Sterile Gloves, Sterile Drape/Sheet and Chlorhexidine Procedure Location: L4-L5 Interspace Epidural Needle: Tuohy 17 Guage Needle Length: 3.5 Inch Needle Approach: Midline Epidural Procedure: Skin Prepped, Sterile Drape Placed, 1% Lidocaine to skin and subcutaneous tissue with 25G needle, Tuohy Needle placed, Bone Contacted despite needle repositioning (On first level, successful on second attempt), PHIL to Saline Used, Epidural Catheter Placed, Negative Heme, Negative CSF Flow and Tuohy Needle Removed Catheter Placed?: Catheter Placed Test Dose (Indicate Dose Given): 5ml 1.5% Lidocaine with 1:200K Epinephrine Given and Negative Test Dose Loss of Resistance Depth (cm): 9 Catheter depth at skin (cm): 15 Dressing: [place] Dressing Placed, Mastisol Used and Dressing reinforced with Tape Epidural Provider Bolus (Indicate Dose Given): Total bolus dose given in 3-5 ml divided doses and Total Ropivacaine 0.1% with Fentanyl 2mcg/ml Given from pump. (ml) Dose:: 10 ml Additives (Indicate Dose Given ): None Infusion Medication: Medication Infusion Began Medication Infusion: Ropivacaine 0.1% with Fentanyl 2 mcg/ml Maintenance Infusion Rate (ml/hour): 10 PCEA Bolus Dose (ml): 5 Block Level: N/A Paresthesia: None Ultrasound: Not Used Number of Attempts (See previous attempts in note section): 2 Procedure Tolerated: No Complications and Patient tolerated well Procedure Outcome: Successful Performed By: Michael Hilliard
--- NOTE | 2023-09-16 20:29 | W.PM.OBNL1 ---
Date of service: 09/16/23 Time of Service: 20:30 Pelvic Exam Dilation: 6 Effacement (%): 100 station: -1 Position: BUTCH Cervix Position: mid Consistency: soft Contractions Monitor Mode: External Contraction Frequency(min): 3-4 Contraction Duration(sec): 60 Intensity: Moderate/Strong Fetus A Monitor: External (US) Heart Rate Baseline: 150 Variability: Moderate (6-25 BPM) Accelerations: Absent Decelerations: None Assessment and Plan Assessment and plan (1) Normal labor: Status: Acute Assessment and plan: 1. epidural is in place and [employer] continues to work with patient to achieve best comfort level possible 2. VE 6/100/-1 + show and leaking clear fluid 3. Once comfortable will encourage rest and reassess in 2-4 hours or prn. 4. Expect NVD. KH Objective Abnormal lab results 09/16/23 Range/Units 18:20 WBC 11.47 H (4.4-10.8) 10^3/uL MCV 101 H (80-95) fL MCH 34.6 H (27.0-33.0) pg Anion Gap 12.0 H (3-11) mmol/L Alkaline Phosphatase 230 H (46-116) U/L Albumin 2.5 L (3.4-5.0) g/dL Temp Pulse Resp BP Pulse Ox 98.4 F 70 20 132/62 99 09/16/23 20:05 09/16/23 20:25 09/16/23 18:07 09/16/23 20:22 09/16/23 20:24 Laboratory Results WBC 11.47 10^3/uL (4.4-10.8) H 09/16/23 18:20 RBC 4.33 10^6/uL (3.93-5.22) 09/16/23 18:20 Hgb 15.0 g/dL (11.2-15.7) 09/16/23 18:20 Hct 43.5 % (36.0-46.0) 09/16/23 18:20 MCV 101 fL (80-95) H 09/16/23 18:20 MCH 34.6 pg (27.0-33.0) H 09/16/23 18:20 MCHC 34.5 % (32.0-36.0) 09/16/23 18:20 RDW 13.4 % (11.7-14.6) 09/16/23 18:20 Plt Count 256 10^3/uL (130-400) 09/16/23 18:20 MPV 9.4 fL (8.0-11.0) 09/16/23 18:20 Sodium 137 mmol/L (136-145) 09/16/23 18:20 Potassium 4.2 mmol/L (3.5-5.1) 09/16/23 18:20 Chloride 104 mmol/L (98-107) 09/16/23 18:20 Carbon Dioxide 21.0 mmol/L (21.0-32.0) 09/16/23 18:20 Anion Gap 12.0 mmol/L (3-11) H 09/16/23 18:20 BUN 11 mg/dL (7-18) 09/16/23 18:20 Creatinine 0.6 mg/dL (0.55-1.02) 09/16/23 18:20 Est GFR (CKD-EPI 2020) 119.23 (mL/min/1.73m2) 09/16/23 18:20 Glucose 87 mg/dL (74-106) 09/16/23 18:20 Calcium 8.5 mg/dL (8.5-10.1) 09/16/23 18:20 Total Bilirubin 0.3 mg/dL (0.2-1.0) 09/16/23 18:20 AST 24 U/L (15-37) 09/16/23 18:20 ALT 17 U/L (14-59) 09/16/23 18:20 Alkaline Phosphatase 230 U/L (46-116) H 09/16/23 18:20 Total Protein 6.9 g/dL (6.4-8.2) 09/16/23 18:20 Albumin 2.5 g/dL (3.4-5.0) L 09/16/23 18:20 Patient ABO/Rh A Negative 09/16/23 18:20 Antibody Screen NEGATIVE 09/16/23 18:20 Subjective Interval history since last seen: Epidural is placed and [employer] continues to work with patient to get best relief for her. She has right groin and back pain that causes her to breath through contractions. Tipped to right and will continue to assess. KH Interventions Pain Management Interventions: Epidural. Results Hemoglobin/Hematocrit: Hgb 15.0 g/dL (11.2-15.7) 09/16/23 18:20 Hct 43.5 % (36.0-46.0) 09/16/23 18:20 Abnormal Lab Findings: Abnormal Labs 09/16/23 18:20 WBC 11.47 H MCV 101 H MCH 34.6 H Anion Gap 12.0 H Alkaline Phosphatase 230 H Albumin 2.5 L
[2023-09-16] MEDS: Lactated Ringers 500 ML IV (23:15)
[2023-09-16] MEDS: Acetaminophen 325 MG TAB 650 MG PO (23:55)
[2023-09-17] VITALS (225 sets, daily range): BP systolic 111–155; BP diastolic 57–89; PULSE 65–100; RESP 16–23; TEMP 36.3–37.4; O2SAT 92–100
--- NOTE | 2023-09-17 00:10 | W.PM.OBNL1 ---
Date of service: 09/17/23 Time of Service: 00:10 Pelvic Exam Dilation: 8.5 station: 0 Cervix Position: mid Comments: There is an edematous anterior lip to cervix but it moves with contractions. Carolyn tolerates VE well. Contractions Monitor Mode: External Contraction Frequency(min): 3 Contraction Duration(sec): 60 Intensity: Moderate/Strong Fetus A Monitor: External (US) Heart Rate Baseline: 150 Variability: Moderate (6-25 BPM) Decelerations: Variable (<50% of contractions lasting 20-40 seconds) Assessment and Plan Assessment and plan (1) Normal labor: Status: Acute Assessment and plan: 1. Continue present management 2. Reassess in 2 hours or prn. KH Objective Abnormal lab results 09/16/23 Range/Units 18:20 WBC 11.47 H (4.4-10.8) 10^3/uL MCV 101 H (80-95) fL MCH 34.6 H (27.0-33.0) pg Anion Gap 12.0 H (3-11) mmol/L Alkaline Phosphatase 230 H (46-116) U/L Albumin 2.5 L (3.4-5.0) g/dL Temp Pulse Resp BP Pulse Ox 99.5 F 83 16 134/68 98 09/16/23 23:18 09/17/23 00:09 09/16/23 22:49 09/16/23 23:18 09/17/23 00:09 Laboratory Results WBC 11.47 10^3/uL (4.4-10.8) H 09/16/23 18:20 RBC 4.33 10^6/uL (3.93-5.22) 09/16/23 18:20 Hgb 15.0 g/dL (11.2-15.7) 09/16/23 18:20 Hct 43.5 % (36.0-46.0) 09/16/23 18:20 MCV 101 fL (80-95) H 09/16/23 18:20 MCH 34.6 pg (27.0-33.0) H 09/16/23 18:20 MCHC 34.5 % (32.0-36.0) 09/16/23 18:20 RDW 13.4 % (11.7-14.6) 09/16/23 18:20 Plt Count 256 10^3/uL (130-400) 09/16/23 18:20 MPV 9.4 fL (8.0-11.0) 09/16/23 18:20 Sodium 137 mmol/L (136-145) 09/16/23 18:20 Potassium 4.2 mmol/L (3.5-5.1) 09/16/23 18:20 Chloride 104 mmol/L (98-107) 09/16/23 18:20 Carbon Dioxide 21.0 mmol/L (21.0-32.0) 09/16/23 18:20 Anion Gap 12.0 mmol/L (3-11) H 09/16/23 18:20 BUN 11 mg/dL (7-18) 09/16/23 18:20 Creatinine 0.6 mg/dL (0.55-1.02) 09/16/23 18:20 Est GFR (CKD-EPI 2020) 119.23 (mL/min/1.73m2) 09/16/23 18:20 Glucose 87 mg/dL (74-106) 09/16/23 18:20 Calcium 8.5 mg/dL (8.5-10.1) 09/16/23 18:20 Total Bilirubin 0.3 mg/dL (0.2-1.0) 09/16/23 18:20 AST 24 U/L (15-37) 09/16/23 18:20 ALT 17 U/L (14-59) 09/16/23 18:20 Alkaline Phosphatase 230 U/L (46-116) H 09/16/23 18:20 Total Protein 6.9 g/dL (6.4-8.2) 09/16/23 18:20 Albumin 2.5 g/dL (3.4-5.0) L 09/16/23 18:20 Patient ABO/Rh A Negative 09/16/23 18:20 Antibody Screen NEGATIVE 09/16/23 18:20 Subjective Interval history since last seen: Carolyn is feeling increased discomfort with contractions. She is using the self dosing button on epidural and repositioning for comfort. Requested VE. KH Results Hemoglobin/Hematocrit: Hgb 15.0 g/dL (11.2-15.7) 09/16/23 18:20 Hct 43.5 % (36.0-46.0) 09/16/23 18:20 Abnormal Lab Findings: Abnormal Labs 09/16/23 18:20 WBC 11.47 H MCV 101 H MCH 34.6 H Anion Gap 12.0 H Alkaline Phosphatase 230 H Albumin 2.5 L
[2023-09-17] MEDS: Lactated Ringers 1,000 ML 125 ML IV ×2 (01:14→08:16)
--- NOTE | 2023-09-17 02:22 | W.PM.OBNL1 ---
Date of service: 09/17/23 Time of Service: 02:22 Pelvic Exam Dilation: 9.5 Effacement (%): 90 station: 0 Comments: There was a thick anterior lip that has now reduced and cervix moves out of way with an attempt at pushing in the past half hour. Contractions Monitor Mode: External Contraction Frequency(min): 3-5 Contraction Duration(sec): 60 Intensity: Moderate/Strong Fetus A Monitor: External (US) Heart Rate Baseline: 150 Variability: Moderate (6-25 BPM) Categories: Category II CategoryII Plan of Care: Intrauterine Resuscitation, Team Huddle, Medical Consult and Continuous Monitoring/Observation Decelerations: Variable Assessment and Plan Assessment and plan (1) Normal labor: Status: Acute Assessment and plan: 1. Normal labor progress noted. Anterior lip reduces easily 2. Contractions 3-5 minutes apart some stronger 3. Attempted to have Carolyn push with a contraction to see how she and baby do. She had good effort and FHR tolerated. However with station 0 will try to labor down without active pushing at this time. 4. Dr. Mancilla notified of FHR changes and that patient had hoped to meet or have MD regional company truck driver present as well. She will come to . 5. Continue to support patient and labor process, will push more actively if involuntary urge or if FHR deceleration require. 6. Will consider having pediatric provider come for delivery if VAD is needed or FHR tracing indicates. KH Objective Abnormal lab results 09/16/23 Range/Units 18:20 WBC 11.47 H (4.4-10.8) 10^3/uL MCV 101 H (80-95) fL MCH 34.6 H (27.0-33.0) pg Anion Gap 12.0 H (3-11) mmol/L Alkaline Phosphatase 230 H (46-116) U/L Albumin 2.5 L (3.4-5.0) g/dL Temp Pulse Resp BP Pulse Ox 98.4 F 78 17 127/66 98 09/17/23 00:39 09/17/23 02:19 09/17/23 01:01 09/17/23 02:08 09/17/23 02:19 Laboratory Results WBC 11.47 10^3/uL (4.4-10.8) H 09/16/23 18:20 RBC 4.33 10^6/uL (3.93-5.22) 09/16/23 18:20 Hgb 15.0 g/dL (11.2-15.7) 09/16/23 18:20 Hct 43.5 % (36.0-46.0) 09/16/23 18:20 MCV 101 fL (80-95) H 09/16/23 18:20 MCH 34.6 pg (27.0-33.0) H 09/16/23 18:20 MCHC 34.5 % (32.0-36.0) 09/16/23 18:20 RDW 13.4 % (11.7-14.6) 09/16/23 18:20 Plt Count 256 10^3/uL (130-400) 09/16/23 18:20 MPV 9.4 fL (8.0-11.0) 09/16/23 18:20 Sodium 137 mmol/L (136-145) 09/16/23 18:20 Potassium 4.2 mmol/L (3.5-5.1) 09/16/23 18:20 Chloride 104 mmol/L (98-107) 09/16/23 18:20 Carbon Dioxide 21.0 mmol/L (21.0-32.0) 09/16/23 18:20 Anion Gap 12.0 mmol/L (3-11) H 09/16/23 18:20 BUN 11 mg/dL (7-18) 09/16/23 18:20 Creatinine 0.6 mg/dL (0.55-1.02) 09/16/23 18:20 Est GFR (CKD-EPI 2020) 119.23 (mL/min/1.73m2) 09/16/23 18:20 Glucose 87 mg/dL (74-106) 09/16/23 18:20 Calcium 8.5 mg/dL (8.5-10.1) 09/16/23 18:20 Total Bilirubin 0.3 mg/dL (0.2-1.0) 09/16/23 18:20 AST 24 U/L (15-37) 09/16/23 18:20 ALT 17 U/L (14-59) 09/16/23 18:20 Alkaline Phosphatase 230 U/L (46-116) H 09/16/23 18:20 Total Protein 6.9 g/dL (6.4-8.2) 09/16/23 18:20 Albumin 2.5 g/dL (3.4-5.0) L 09/16/23 18:20 Patient ABO/Rh A Negative 09/16/23 18:20 Antibody Screen NEGATIVE 09/16/23 18:20 Subjective Interval history since last seen: Carolyn is doing well with frequent position changes and suggestions made to support her labor and to do intrauterine resuscitation for occasional FHR decelerations. She would like to meet physician regional company truck driver and have that provider available as well as having CNM at bedside. KH Results Hemoglobin/Hematocrit: Hgb 15.0 g/dL (11.2-15.7) 09/16/23 18:20 Hct 43.5 % (36.0-46.0) 09/16/23 18:20 Abnormal Lab Findings: Abnormal Labs 09/16/23 18:20 WBC 11.47 H MCV 101 H MCH 34.6 H Anion Gap 12.0 H Alkaline Phosphatase 230 H Albumin 2.5 L
--- NOTE | 2023-09-17 05:31 | W.PM.OBNL1 ---
Date of service: 09/17/23 Time of Service: 05:15 Pelvic Exam Dilation: 10 station: +2 Comments: During the course of pushing with the pt for about 10-15min the head seemed to rotate some and she brought it from 0/+1 station to +2 station. The exact position was difficult to determine due to some caput. Contractions Contraction Frequency(min): q2-4 Fetus A Heart Rate Baseline: 160 Presentation: Vertex Variability: Moderate (6-25 BPM) Categories: Category II Accelerations: 15 X 15 Decelerations: Early and Variable Assessment and Plan Assessment and plan (1) Category II heart rate tracing during labor and delivery: Status: Acute Assessment and plan: Since she has made some recent progress is descent of the head she will continue to try pushing a little longer. If no further progress, then a CS will be necessary. The baby continues to have moderate variability, which is reassuring. Will continue to monitor and change plans as needed. Objective Abnormal lab results 09/16/23 Range/Units 18:20 WBC 11.47 H (4.4-10.8) 10^3/uL MCV 101 H (80-95) fL MCH 34.6 H (27.0-33.0) pg Anion Gap 12.0 H (3-11) mmol/L Alkaline Phosphatase 230 H (46-116) U/L Albumin 2.5 L (3.4-5.0) g/dL Temp Pulse Resp BP Pulse Ox 99.3 F 100 H 17 147/84 H 96 09/17/23 03:33 09/17/23 04:49 09/17/23 01:01 09/17/23 04:49 09/17/23 02:29 Laboratory Results WBC 11.47 10^3/uL (4.4-10.8) H 09/16/23 18:20 RBC 4.33 10^6/uL (3.93-5.22) 09/16/23 18:20 Hgb 15.0 g/dL (11.2-15.7) 09/16/23 18:20 Hct 43.5 % (36.0-46.0) 09/16/23 18:20 MCV 101 fL (80-95) H 09/16/23 18:20 MCH 34.6 pg (27.0-33.0) H 09/16/23 18:20 MCHC 34.5 % (32.0-36.0) 09/16/23 18:20 RDW 13.4 % (11.7-14.6) 09/16/23 18:20 Plt Count 256 10^3/uL (130-400) 09/16/23 18:20 MPV 9.4 fL (8.0-11.0) 09/16/23 18:20 Sodium 137 mmol/L (136-145) 09/16/23 18:20 Potassium 4.2 mmol/L (3.5-5.1) 09/16/23 18:20 Chloride 104 mmol/L (98-107) 09/16/23 18:20 Carbon Dioxide 21.0 mmol/L (21.0-32.0) 09/16/23 18:20 Anion Gap 12.0 mmol/L (3-11) H 09/16/23 18:20 BUN 11 mg/dL (7-18) 09/16/23 18:20 Creatinine 0.6 mg/dL (0.55-1.02) 09/16/23 18:20 Est GFR (CKD-EPI 2020) 119.23 (mL/min/1.73m2) 09/16/23 18:20 Glucose 87 mg/dL (74-106) 09/16/23 18:20 Calcium 8.5 mg/dL (8.5-10.1) 09/16/23 18:20 Total Bilirubin 0.3 mg/dL (0.2-1.0) 09/16/23 18:20 AST 24 U/L (15-37) 09/16/23 18:20 ALT 17 U/L (14-59) 09/16/23 18:20 Alkaline Phosphatase 230 U/L (46-116) H 09/16/23 18:20 Total Protein 6.9 g/dL (6.4-8.2) 09/16/23 18:20 Albumin 2.5 g/dL (3.4-5.0) L 09/16/23 18:20 Patient ABO/Rh A Negative 09/16/23 18:20 Antibody Screen NEGATIVE 09/16/23 18:20 Subjective Interval history since last seen: Consulted due to pt pushing for 2hrs with minimal descent and Cat 2 FHT. She is getting very tired. She has an anterior lip that keeps needing to be reduced during pushing. She has tried various positions. She baby is having variable or early decels with >50% of the contraction with primarily moderate variability in between. Baseline has ranged from 155-165. +accels noted. Results Hemoglobin/Hematocrit: Hgb 15.0 g/dL (11.2-15.7) 09/16/23 18:20 Hct 43.5 % (36.0-46.0) 09/16/23 18:20 Abnormal Lab Findings: Abnormal Labs 09/16/23 18:20 WBC 11.47 H MCV 101 H MCH 34.6 H Anion Gap 12.0 H Alkaline Phosphatase 230 H Albumin 2.5 L
--- NOTE | 2023-09-17 06:29 | PGE_ITS ---
Date of service: 09/17/23 Time of Service: 06:30 Informed Consent Informed Consent: Section Delivery (obtained by Dr. Dorman) and Risk,Benefits,Alternatives Discussed Pelvic Exam Dilation: 10 Effacement (%): 0 station: +1 Contractions Monitor Mode: External Contraction Frequency(min): 3-5 Contraction Duration(sec): 60 Intensity: Moderate Fetus A Monitor: External (US) Heart Rate Baseline: 157 Variability: Minimal (1-5 BPM) Categories: Category II Decelerations: Variable Assessment and Plan Assessment and plan (1) Arrested labor: Status: Acute Assessment and plan: 1. Despite best efforts, head has not been able to descend beyond +1. Dr. Mancilla has been with patient and telegraphic typewriter installer and has offered C/S due to lack of descent and maternal fatigue. 2. See MD note for consent 3. Will support patient and assist with . KH Objective Abnormal lab results 09/16/23 Range/Units 18:20 WBC 11.47 H (4.4-10.8) 10^3/uL MCV 101 H (80-95) fL MCH 34.6 H (27.0-33.0) pg Anion Gap 12.0 H (3-11) mmol/L Alkaline Phosphatase 230 H (46-116) U/L Albumin 2.5 L (3.4-5.0) g/dL Temp Pulse Resp BP Pulse Ox 99.3 F 100 H 17 147/84 H 96 09/17/23 03:33 09/17/23 04:49 09/17/23 01:01 09/17/23 04:49 09/17/23 02:29 Laboratory Results WBC 11.47 10^3/uL (4.4-10.8) H 09/16/23 18:20 RBC 4.33 10^6/uL (3.93-5.22) 09/16/23 18:20 Hgb 15.0 g/dL (11.2-15.7) 09/16/23 18:20 Hct 43.5 % (36.0-46.0) 09/16/23 18:20 MCV 101 fL (80-95) H 09/16/23 18:20 MCH 34.6 pg (27.0-33.0) H 09/16/23 18:20 MCHC 34.5 % (32.0-36.0) 09/16/23 18:20 RDW 13.4 % (11.7-14.6) 09/16/23 18:20 Plt Count 256 10^3/uL (130-400) 09/16/23 18:20 MPV 9.4 fL (8.0-11.0) 09/16/23 18:20 Sodium 137 mmol/L (136-145) 09/16/23 18:20 Potassium 4.2 mmol/L (3.5-5.1) 09/16/23 18:20 Chloride 104 mmol/L (98-107) 09/16/23 18:20 Carbon Dioxide 21.0 mmol/L (21.0-32.0) 09/16/23 18:20 Anion Gap 12.0 mmol/L (3-11) H 09/16/23 18:20 BUN 11 mg/dL (7-18) 09/16/23 18:20 Creatinine 0.6 mg/dL (0.55-1.02) 09/16/23 18:20 Est GFR (CKD-EPI 2020) 119.23 (mL/min/1.73m2) 09/16/23 18:20 Glucose 87 mg/dL (74-106) 09/16/23 18:20 Calcium 8.5 mg/dL (8.5-10.1) 09/16/23 18:20 Total Bilirubin 0.3 mg/dL (0.2-1.0) 09/16/23 18:20 AST 24 U/L (15-37) 09/16/23 18:20 ALT 17 U/L (14-59) 09/16/23 18:20 Alkaline Phosphatase 230 U/L (46-116) H 09/16/23 18:20 Total Protein 6.9 g/dL (6.4-8.2) 09/16/23 18:20 Albumin 2.5 g/dL (3.4-5.0) L 09/16/23 18:20 Patient ABO/Rh A Negative 09/16/23 18:20 Antibody Screen NEGATIVE 09/16/23 18:20 Subjective Interval history since last seen: Carolyn has pushed well for almost 3 hours without significant descent. FHR tracing has been CAT II due to periods of tachycardia and variable decelerations. Dr. Mancilla has been present for pushing and discussed with patient option of . Carolyn and Rodo feel that is best option for them at this point due to fatigue and lack of descent despite pushing well. Results Hemoglobin/Hematocrit: Hgb 15.0 g/dL (11.2-15.7) 09/16/23 18:20 Hct 43.5 % (36.0-46.0) 09/16/23 18:20 Abnormal Lab Findings: Abnormal Labs 09/16/23 18:20 WBC 11.47 H MCV 101 H MCH 34.6 H Anion Gap 12.0 H Alkaline Phosphatase 230 H Albumin 2.5 L
--- NOTE | 2023-09-17 06:32 | W.PM.OBNL1 ---
Date of service: 09/17/23 Time of Service: 06:32 Fetus A Heart Rate Baseline: 160 Presentation: Vertex Variability: Moderate (6-25 BPM) Categories: Category II Accelerations: 15 X 15 Decelerations: Early and Variable Assessment and Plan Assessment and plan (1) Category II heart rate tracing during labor and delivery: Status: Acute (2) Arrested labor: Status: Acute Assessment and plan: Due to maternal exhaustion and lack of further descent we had a discussion about the option to proceed with a section and the pt would like to go ahead with that at this time. We discussed the procedure and the risks involved and all questions were answered and consents signed. Objective Abnormal lab results 09/16/23 Range/Units 18:20 WBC 11.47 H (4.4-10.8) 10^3/uL MCV 101 H (80-95) fL MCH 34.6 H (27.0-33.0) pg Anion Gap 12.0 H (3-11) mmol/L Alkaline Phosphatase 230 H (46-116) U/L Albumin 2.5 L (3.4-5.0) g/dL Temp Pulse Resp BP Pulse Ox 99.3 F 100 H 17 147/84 H 96 09/17/23 03:33 09/17/23 04:49 09/17/23 01:01 09/17/23 04:49 09/17/23 02:29 Laboratory Results WBC 11.47 10^3/uL (4.4-10.8) H 09/16/23 18:20 RBC 4.33 10^6/uL (3.93-5.22) 09/16/23 18:20 Hgb 15.0 g/dL (11.2-15.7) 09/16/23 18:20 Hct 43.5 % (36.0-46.0) 09/16/23 18:20 MCV 101 fL (80-95) H 09/16/23 18:20 MCH 34.6 pg (27.0-33.0) H 09/16/23 18:20 MCHC 34.5 % (32.0-36.0) 09/16/23 18:20 RDW 13.4 % (11.7-14.6) 09/16/23 18:20 Plt Count 256 10^3/uL (130-400) 09/16/23 18:20 MPV 9.4 fL (8.0-11.0) 09/16/23 18:20 Sodium 137 mmol/L (136-145) 09/16/23 18:20 Potassium 4.2 mmol/L (3.5-5.1) 09/16/23 18:20 Chloride 104 mmol/L (98-107) 09/16/23 18:20 Carbon Dioxide 21.0 mmol/L (21.0-32.0) 09/16/23 18:20 Anion Gap 12.0 mmol/L (3-11) H 09/16/23 18:20 BUN 11 mg/dL (7-18) 09/16/23 18:20 Creatinine 0.6 mg/dL (0.55-1.02) 09/16/23 18:20 Est GFR (CKD-EPI 2020) 119.23 (mL/min/1.73m2) 09/16/23 18:20 Glucose 87 mg/dL (74-106) 09/16/23 18:20 Calcium 8.5 mg/dL (8.5-10.1) 09/16/23 18:20 Total Bilirubin 0.3 mg/dL (0.2-1.0) 09/16/23 18:20 AST 24 U/L (15-37) 09/16/23 18:20 ALT 17 U/L (14-59) 09/16/23 18:20 Alkaline Phosphatase 230 U/L (46-116) H 09/16/23 18:20 Total Protein 6.9 g/dL (6.4-8.2) 09/16/23 18:20 Albumin 2.5 g/dL (3.4-5.0) L 09/16/23 18:20 Patient ABO/Rh A Negative 09/16/23 18:20 Antibody Screen NEGATIVE 09/16/23 18:20 Vital Signs Reviewed: Yes Subjective Interval history since last seen: Pt has been pushing for 3hrs and is exhausted feeling unable to continue pushing. Baby is still only at +2 station. Results Hemoglobin/Hematocrit: Hgb 15.0 g/dL (11.2-15.7) 09/16/23 18:20 Hct 43.5 % (36.0-46.0) 09/16/23 18:20 Abnormal Lab Findings: Abnormal Labs 09/16/23 18:20 WBC 11.47 H MCV 101 H MCH 34.6 H Anion Gap 12.0 H Alkaline Phosphatase 230 H Albumin 2.5 L
[2023-09-17] MEDS: FentaNYL/ROPIvacaine 2 mcg/ml and 0.1% 200 ML CADD Cassette EP (06:33)
[2023-09-17] MEDS: AZITHROMYCIN 500 MG in Normal Saline 250 ML 250 MG IVPB (06:52)
[2023-09-17] MEDS: ceFAZolin 2 GM/50 ML BAG 100 GM (07:31)
[2023-09-17] MEDS: Bupivacaine 0.25% Pres-Free 30 ML VIAL (08:19)
--- NOTE | 2023-09-17 08:43 | BRIEFOP_ITS ---
Date of service: 09/17/23 Time of Service: 08:00 Brief Operative Note Procedure/Pre & Post Op Diagnoses/Human Factors Ergonomist: Operation Date: 09/17/23 07:40 Actual Procedures p Section - Chelo Mancilla MD Pre-Op Diagnosis: FAILURE TO DESCEND Post-Op Diagnosis: FAILURE TO DESCEND Anesthesia Anesthesia Type: Spinal Estimated Blood Loss Output, Estimated Blood Loss 800 Amount Specimen/Culture Specimen(s): CORD BLOOD SENT TO LAB Complications Complications: None
--- NOTE | 2023-09-17 10:20 | W.ANESPOSTOP ---
Postoperative Evaluation Date, Time and Location Date Performed: 09/17/23 Time Performed: 10:20 Patient Location: Day Surgery Unit Vital Signs Most Recent Imported Vital Signs: Most Recent Vital Signs Temp Pulse Resp BP Pulse Ox 37.4 C 90 16 127/69 98 09/17/23 09:25 09/17/23 10:18 09/17/23 09:45 09/17/23 10:14 09/17/23 10:15 Pain Score Most Recent Pain Score: Most Recent Pain Score Pain Level 0 09/17/23 09:45 Assessment Mental Status: Awake (Alert & Oriented to Patient Baseline) Airway and Respiratory Function: Patent airway with normal (patient baseline) respiratory exam Cardiovascular Function: Hemodynamically Stable Hydration Status: Adequately Hydrated Nausea & Vomiting: No Nausea or Vomiting Pain: Pain is tolerable per patient Peripheral Nerve Block: Patient did not receive a nerve block
[2023-09-17] MEDS: Acetaminophen 325 MG TAB 650 MG PO (12:31)
[2023-09-17] MEDS: oxyCODONE 5 MG TAB PO ×2 (12:38→22:58)
[2023-09-17] MEDS: Ketorolac 30 MG/ML VIAL IVP ×2 (14:59→20:55)
[2023-09-17] MEDS: Docusate Sodium 100 MG CAP PO (20:55)
[2023-09-17] MEDS: Normal Saline Flush 10 ML SYR IVP ×2 (20:55)
[2023-09-17] MEDS: Sertraline 50 MG TAB 100 MG PO (21:08)
[2023-09-18] VITALS (7 sets, daily range): BP systolic 107–143; BP diastolic 72–91; PULSE 81–97; RESP 16–18; TEMP 36.8–37.2
[2023-09-18] MEDS: Ketorolac 30 MG/ML VIAL IVP (03:10)
[2023-09-18] MEDS: Normal Saline Flush 10 ML SYR IVP (03:11)
[2023-09-18] MEDS: Acetaminophen 325 MG TAB 650 MG PO ×4 (03:12→21:45)
[2023-09-18] MEDS: oxyCODONE 5 MG TAB PO ×5 (04:41→23:29)
[2023-09-18] MEDS: Docusate Sodium 100 MG CAP PO ×2 (11:04→21:45)
[2023-09-18] MEDS: Ibuprofen 600 MG TAB PO ×2 (12:05→17:58)
--- NOTE | 2023-09-18 13:59 | W.PM.OBPNV1 ---
Date of service: 09/18/23 Time of Service: 12:30 Assessment and Plan Assessment and plan (1) Arrest of descent, delivered, current hospitalization: Assessment and plan: POD#1 s/p PCS for arrest. She is doing very well. Will continue routine pp care. Subjective Subjective Interval history: Pt feels well, just tired. She is ambulating without assistance and has been able to void s/p garcia removal. She is tolerated PO intake without n/v. She says she hasn't passed gas yet. She feels more generalized abdominal discomfort over the course of today as the duramorph is wearing off. She has taken 1 oxycodone less frequently than q6hrs and taken toradol/ibuprofen regularly. She says nursing is going well baby is doing well and she feels very well supported by her partner. Exam Physical Exam Vital signs: Temp Pulse Resp BP Pulse Ox 98.5 F 81 16 107/72 98 09/18/23 08:14 09/18/23 08:14 09/17/23 23:08 09/18/23 08:14 09/17/23 17:20 Vital Signs Reviewed: Yes Constitutional Constitutional: no acute distress and cooperative Detailed HEENT Exam Head: Present normocephalic and atraumatic Respiratory Exam Respiratory Exam: Normal Abdominal Exam Abdomen: Tender (mildly) Comments: Incision covered with mepilex dressing. Small area of dried blood noted. Fundal Exam Fundus: Below Umbilicus and Firm Extremities Exam Extremity Exam: Edema (trace) Detailed Neurological Exam Neurological: Present alert, oriented X3 and CN II-XII intact Results Hemoglobin/Hematocrit: Hgb 15.0 g/dL (11.2-15.7) 09/16/23 18:20 Hct 43.5 % (36.0-46.0) 09/16/23 18:20 Abnormal Lab Findings: Abnormal Labs 09/16/23 18:20 WBC 11.47 H MCV 101 H MCH 34.6 H Anion Gap 12.0 H Alkaline Phosphatase 230 H Albumin 2.5 L
[2023-09-19] MEDS: Ibuprofen 600 MG TAB PO ×4 (01:04→22:15)
[2023-09-19] MEDS: oxyCODONE 5 MG TAB PO ×5 (03:52→20:39)
[2023-09-19] MEDS: Acetaminophen 325 MG TAB 650 MG PO ×3 (05:26→18:30)
[2023-09-19 07:58] VITALS: BP 140/94; PULSE 90; RESP 18; TEMP 36.8; O2SAT 97
[2023-09-19] MEDS: Docusate Sodium 100 MG CAP PO (09:22)
[2023-09-19 09:30] VITALS: BP 135/82; PULSE 88
--- NOTE | 2023-09-19 11:50 | W.PM.OBPNV1 ---
Date of service: 09/19/23 Time of Service: 11:50 Assessment and Plan Assessment and plan (1) History of : Assessment and plan: Pt prefers to stay until tomorrow. Will plan routine d/c at that time. We reviewed progesterone only contraceptive options since she is breast feeding. We will discuss further at her post visit. We reviewed d/c instructions and reasons to call including increasing bleeding or pain, fever, concern for DVT or mood changes. She will return next week for removal of the mepilex dressing. Subjective Subjective Narrative: Pt is doing well. Pain is adequately controlled on PO meds. Tolerating oral diet without n/v. +Flatus, neg BM. Reports moderate lochia. Breast-feeding is going well. Mood is good. She does have a rash from the adhesive of the surgical drape and the epidural tape that is pretty itchy - plans to try hydrocortisone on it. They are uncertain if they will pursue another or not. She was on low dose OCPs previously. Exam Physical Exam Vital signs: Temp Pulse Resp BP Pulse Ox 98.2 F 88 18 135/82 97 09/19/23 07:58 09/19/23 09:30 09/19/23 07:58 09/19/23 09:30 09/19/23 07:58 Vital Signs Reviewed: Yes Constitutional Constitutional: no acute distress and cooperative Detailed HEENT Exam Head: Present normocephalic and atraumatic Respiratory Exam Respiratory Exam: Normal Abdominal Exam Abdomen: Tender (mildly) Comments: Incision clean, dry, intact Fundal Exam Fundus: Below Umbilicus and Firm Extremities Exam Extremity Exam: Edema (1+ b/l) Detailed Neurological Exam Neurological: Present alert, oriented X3 and CN II-XII intact Results Hemoglobin/Hematocrit: Hgb 15.0 g/dL (11.2-15.7) 09/16/23 18:20 Hct 43.5 % (36.0-46.0) 09/16/23 18:20 Abnormal Lab Findings: Abnormal Labs 09/16/23 18:20 WBC 11.47 H MCV 101 H MCH 34.6 H Anion Gap 12.0 H Alkaline Phosphatase 230 H Albumin 2.5 L
--- NOTE | 2023-09-19 11:57 | W.PM.OBDISCH ---
Date of service: 09/19/23 Time of Service: 11:57 DS: Diagnosis Discharge Diagnosis (1) History of : Discharge Plan Disposition Patient Disposition: Home Condition: Stable Discharge Details Reason For Visit: Primary section Admit Date/Time: 09/16/23 16:59 Admit Provider: Myriam Mcdaniel Attending Provider: Myriam Mcdaniel Primary Care Provider: Myriam Underwood Hospital Course Hospital Course: Pt admitted in active labor and progressed to fully dilated. She pushed for 3hrs with minimal descent of the head. She had a Cat 2 FHT and the decision was made to proceed with a CS. The surgery was uncomplicated with resulting female infant. She had a routine post-op course. She was discharged home postoperative day #3 ambulating, tolerating regular diet and oral pain medication with stable vital signs. Home Meds and New Rx's Prescriptions: New acetaminophen 325 mg Tablet 650 mg PO Q4H PRN PRNQty: 90 0RF hydrocortisone 1 % Cream 0 applic topical TID PRN PRNQty: 0 0RF ibuprofen 600 mg Tablet 600 mg PO Q6H PRN PRNQty: 90 0RF oxycodone 5 mg Tablet 5 mg PO Q4H PRN PRNQty: 10 0RF docusate sodium [Colace] 100 mg capsule 100 mg PO BID Qty: 30 1RF Continued docusate sodium [Colace] 100 mg capsule 100 mg PO BID Gummies 400 mcg-35 mg- 25 mg-5 mg tablet,chewable 1 tab PO DAILY ferrous sulfate 325 mg (65 mg iron) tablet 325 mg PO DAILY cholecalciferol (vitamin D3) 25 mcg (1,000 unit) capsule 25 mcg PO DAILY Hold Instructions: Pt Stopped/Never Started sertraline 50 mg tablet 100 mg PO DAILY Fiber Gummies 2 gram tablet,chewable 2 g PO DAILY Hold Instructions: Pt Stopped/Never Started ascorbic acid (vitamin C) 250 mg tablet 250 mg PO DAILY Hold Instructions: Adverse Reaction zolpidem [Ambien] 10 mg tablet 10 mg PO QHS Qty: 1 0RF Discontinued folic acid 0.8 mg capsule 0.8 mg PO DAILY aspirin [Adult Aspirin Regimen] 81 mg tablet,delayed release (DR/EC) 81 mg PO DAILY No Action omega 0-dvc-htq-fish oil [Fish Oil] 60-90-500 mg capsule 1 cap PO DAILY Hold Instructions: Pt Stopped/Never Started Discharge Instructions Additional Instructions: Follow-up with Dr. Mancilla in 1 week Stand Alone Forms: BC Instructions, Discharge Instruc Activity:: No lifting >20lbs Equipment/Supplies:: No Equipment Needed Diet:: As Tolerated Discharge Orders Discharge Orders: Discharge Order (Routine); Ordered 09/20/23 Ordered By: Jossie Padilla Discharge Data Discharge Date/Time-TO BE ENTERED AT DEPARTURE: 09/20/23 13:15 OB:DS Summary Contraception Discussed Contraception Discussed: Yes, Infant Gender-Baby A: Female Status at Discharge Functional status at discharge: independent ambulation Overall status at discharge: patient is back to baseline Mental Status: mental status grossly normal Speech and Movement: speech and movement normal Mood: congruent mood Affect: normal affect Quality:SDOH Health Related Social Needs: No Data to Display Exam Physical Exam Vital signs: Temp Pulse Resp BP Pulse Ox 98.2 F 88 18 135/82 97 09/19/23 07:58 09/19/23 09:30 09/19/23 07:58 09/19/23 09:30 09/19/23 07:58 PFSH All Active Problems (Updated 09/19/23 @ 11:54 by Chelo Mancilla MD) Right sciatic nerve pain (Acute) Medical History (Updated 09/19/23 @ 11:54 by Chelo Mancilla MD) Arrest of descent, delivered, current hospitalization Elevated TSH Left orbit fracture Migraine Vulvar pruritus prior to menses. Rx with OTC vaginal antifungal. 10/2016. with vulvitis sx. Neg vulvar Cx. Rx Terazol. PO Fluconazole. 05/01/17 Vag path screen____ Rx: OTC antifungal cream, PO Fluconazole 150mg/week x6w. Surgical History (Updated 09/19/23 @ 11:54 by Chelo Mancilla MD) History of 09/17/23 - [facility] Dr. 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 Pets and animals: Yes Pets and animals: dog(s) Sexually active: Yes Do you think of yourself as: straight/heterosexual Current gender identity: male What type of physical activity do you participate in: walking Duration: 45-60 minutes/day Frequency: 3-4 times per week Seatbelt use: always Helmet use: Yes Drive intox or ride w/intox hydraulic lift driver: No Do you feel safe at home: Yes Do you feel safe in your relationship?: Yes Female Reproductive History Menstrual control method: pills History History 1 Para 1 Hx # Term Pregnancies 1 Multiple births 0 Hx # Pregnancies 0 Ectopic pregnancies 0 AB induced 0 Hx Number of Living Children 1 AB spontaneous 0 Past Pregnancies Del. Date GA/Weeks # Preg Succ Route Wgt Sex Labor Lgth Anesthesia Location [facility] 09/17/23 39 No Yes Female regional MD Aura; ELIANA Sherman Delivery Date: 09/17/23 Last Updated by: ANTHONY Quiñonez; for failure to progress DS: Data Vitals/I&O Vitals and I&O: Vital Signs Temperature 98.2 F 09/19/23 07:58 Temperature Source Oral 09/17/23 09:25 Temperature Source Oral 09/19/23 07:58 Pulse 88 09/19/23 09:30 Pulse Rhythm Regular 09/18/23 20:00 Respiratory Rate 18 09/19/23 07:58 Respiratory Depth Normal 09/18/23 09:00 Blood Pressure 135/82 09/19/23 09:30 Blood Pressure Mean 99 09/19/23 09:30 Pulse Oximetry 97 09/19/23 07:58 Respiratory End-tidal CO2 30 09/17/23 09:00 Oxygen Delivery Method Room Air 09/17/23 09:00 Oxygen Flow Rate 0 09/17/23 09:00 Pain Level 4 09/19/23 11:00 Comment Patient reports pain at this time. Additional pain meds given. 09/18/23 03:45 Intake & Output 09/18/23 09/18/23 09/19/23 11:59 23:59 11:59 Output Total 600 / 600 Balance -600 / -600 Output: Urine 600 / 600 Other: Urine Color Dark Red Pale
[2023-09-19] MEDS: Hydrocortisone 1% CR 30 GM TUBE TP (12:00)
[2023-09-19 12:52] VITALS: BP 126/90; PULSE 87; RESP 18
[2023-09-19 16:05] VITALS: BP 126/86; PULSE 89; RESP 18
[2023-09-20] MEDS: oxyCODONE 5 MG TAB PO ×3 (01:33→11:49)
[2023-09-20 01:35] VITALS: BP 126/82; PULSE 83; RESP 18; TEMP 36.5
[2023-09-20] MEDS: Acetaminophen 325 MG TAB 650 MG PO ×2 (02:12→08:41)
[2023-09-20] MEDS: Docusate Sodium 100 MG CAP PO (02:13)
[2023-09-20] MEDS: Ibuprofen 600 MG TAB PO (04:28)
[2023-09-20 08:45] VITALS: BP 135/92; PULSE 76; RESP 16; TEMP 36.6; O2SAT 99
--- NOTE | 2023-09-20 10:06 | W.PM.OBPNV1 ---
Date of service: 09/20/23 Time of Service: 10:06 Assessment and Plan Assessment and plan (1) History of : Assessment and plan: Postoperative day #3 status post primary low-transverse section for arrest of descent and category 2 tracing. Overall doing well. Discharge home today. Follow-up in the office in 1 week. Instructions were given. Prescription sent to the pharmacy. All questions answered. Subjective Subjective Interval history: Patient seen and examined this morning. Overall doing well. Pain is well-controlled with oral pain medication. She is ambulating, and tolerating a regular diet. She is continue to work on breast-feeding. The baby did some cluster feeding last night. Overall she is feeling well and ready for discharge home. Her only concern is that of some lower extremity edema, and the karrie of her pain medication when at home. All questions were answered. [place] baby status: Doing well [place] feeding status: Exclusively breast feeding Exam Physical Exam Vital signs: Temp Pulse Resp BP Pulse Ox 97.9 F 76 16 135/92 H 99 09/20/23 08:45 09/20/23 08:45 09/20/23 08:45 09/20/23 08:45 09/20/23 08:45 Vital Signs Reviewed: Yes Constitutional Constitutional: no acute distress Neck Exam Neck Exam: Normal Respiratory Exam Respiratory Exam: Normal Cardiovascular Exam Cardiovascular Exam: Normal Abdominal Exam Abdomen: Tender Comments: Incision is dressed Fundal Exam Fundus: Below Umbilicus and Firm Extremities Exam Extremity Exam: Edema (2+, bilateral); negative Calf Tenderness Skin Exam Skin Exam: Normal Neurological Exam Neurological Exam: Normal Psychiatric Exam Psychiatric Exam: Normal Results Hemoglobin/Hematocrit: Hgb 15.0 g/dL (11.2-15.7) 09/16/23 18:20 Hct 43.5 % (36.0-46.0) 09/16/23 18:20 Abnormal Lab Findings: Abnormal Labs 09/16/23 18:20 WBC 11.47 H MCV 101 H MCH 34.6 H Anion Gap 12.0 H Alkaline Phosphatase 230 H Albumin 2.5 L
--- NOTE | 2023-09-20 10:11 | DSE_ITS ---
Date of service: 09/20/23 Time of Service: 10:11 DS: Diagnosis Discharge Diagnosis (1) History of : Asessment and Plan: Discharged home postoperative day #3 status post primary low-transverse section for arrest of descent and category 2 tracing. Discharge Plan Disposition Patient Disposition: Home Condition: Stable Discharge Details Reason For Visit: RULE OUT LABOR Admit Date/Time: 09/16/23 16:59 Admit Provider: Myriam Mcdaniel Attending Provider: Myriam Mcdaniel Primary Care Provider: Myriam Underwood Hospital Course Hospital Course: Pt admitted in active labor and progressed to fully dilated. She pushed for 3hrs with minimal descent of the head. She had a Cat 2 FHT and the decision was made to proceed with a CS. The surgery was uncomplicated with resulting female infant. She had a routine post-op course. She was discharged home postoperative day #3 ambulating, tolerating regular diet and oral pain medication with stable vital signs. Home Meds and New Rx's Prescriptions: New acetaminophen 325 mg Tablet 650 mg PO Q4H PRN PRNQty: 90 0RF hydrocortisone 1 % Cream 0 applic topical TID PRN PRNQty: 0 0RF ibuprofen 600 mg Tablet 600 mg PO Q6H PRN PRNQty: 90 0RF oxycodone 5 mg Tablet 5 mg PO Q4H PRN PRNQty: 10 0RF docusate sodium [Colace] 100 mg capsule 100 mg PO BID Qty: 30 1RF Continued docusate sodium [Colace] 100 mg capsule 100 mg PO BID Gummies 400 mcg-35 mg- 25 mg-5 mg tablet,chewable 1 tab PO DAILY ferrous sulfate 325 mg (65 mg iron) tablet 325 mg PO DAILY cholecalciferol (vitamin D3) 25 mcg (1,000 unit) capsule 25 mcg PO DAILY Hold Instructions: Pt Stopped/Never Started sertraline 50 mg tablet 100 mg PO DAILY Fiber Gummies 2 gram tablet,chewable 2 g PO DAILY Hold Instructions: Pt Stopped/Never Started ascorbic acid (vitamin C) 250 mg tablet 250 mg PO DAILY Hold Instructions: Adverse Reaction zolpidem [Ambien] 10 mg tablet 10 mg PO QHS Qty: 1 0RF Discontinued folic acid 0.8 mg capsule 0.8 mg PO DAILY aspirin [Adult Aspirin Regimen] 81 mg tablet,delayed release (DR/EC) 81 mg PO DAILY No Action omega 7-sff-ivk-fish oil [Fish Oil] 60-90-500 mg capsule 1 cap PO DAILY Hold Instructions: Pt Stopped/Never Started Discharge Instructions Additional Instructions: Follow-up with Dr. Mancilla in 1 week Stand Alone Forms: BC Instructions, BC Discharge Instruc Activity:: No lifting >20lbs Equipment/Supplies:: No Equipment Needed Diet:: As Tolerated Discharge Orders Discharge Orders: Discharge Order (Routine); Ordered 09/20/23 Ordered By: Jossie Padilla OB:DS Summary Contraception Discussed Contraception Discussed: No, Infant Gender-Baby A: Female Status at Discharge Functional status at discharge: independent ambulation Overall status at discharge: patient is progressing back to baseline Mental Status: mental status grossly normal Speech and Movement: speech and movement normal Mood: congruent mood Affect: normal affect Quality:SDOH Health Related Social Needs: No Data to Display Exam Physical Exam Vital signs: Temp Pulse Resp BP Pulse Ox 97.9 F 76 16 135/92 H 99 09/20/23 08:45 09/20/23 08:45 09/20/23 08:45 09/20/23 08:45 09/20/23 08:45 Narrative: See physical exam from progress note dated All Active Problems (Updated 09/19/23 @ 11:54 by Chelo Mancilla MD) Right sciatic nerve pain (Acute) Medical History (Updated 09/19/23 @ 11:54 by Chelo Mancilla MD) Arrest of descent, delivered, current hospitalization Elevated TSH Left orbit fracture Migraine Vulvar pruritus prior to menses. Rx with OTC vaginal antifungal. 10/2016. with vulvitis sx. Neg vulvar Cx. Rx Terazol. PO Fluconazole. 05/01/17 Vag path screen____ Rx: OTC antifungal cream, PO Fluconazole 150mg/week x6w. Surgical History (Updated 09/19/23 @ 11:54 by Chelo Mancilla MD) History of 09/17/23 - [facility] Dr. 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 Pets and animals: Yes Pets and animals: dog(s) Sexually active: Yes Do you think of yourself as: straight/heterosexual Current gender identity: male What type of physical activity do you participate in: walking Duration: 45-60 minutes/day Frequency: 3-4 times per week Seatbelt use: always Helmet use: Yes Drive intox or ride w/intox front loader residential driver: No Do you feel safe at home: Yes Do you feel safe in your relationship?: Yes Female Reproductive History Menstrual control method: pills History History 1 Para 1 Hx # Term Pregnancies 1 Multiple births 0 Hx # Pregnancies 0 Ectopic pregnancies 0 AB induced 0 Hx Number of Living Children 1 AB spontaneous 0 Past Pregnancies Del. Date GA/Weeks # Preg Succ Route Wgt Sex Labor Lgth Anesth esia Location [facility] 09/17/23 39 No Yes Female regional Vance pickering MD; ELIANA Sherman Delivery Date: 09/17/23 Last Updated by: ANTHONY Quiñonez; for failure to progress DS: Data Vitals/I&O Vitals and I&O: Vital Signs Temperature 97.9 F 09/20/23 08:45 Temperature Source Oral 09/17/23 09:25 Temperature Source Oral 09/20/23 08:45 Pulse 76 09/20/23 08:45 Pulse Rhythm Regular 09/20/23 01:34 Respiratory Rate 16 09/20/23 08:45 Respiratory Depth Normal 09/18/23 09:00 Blood Pressure 135/92 H 09/20/23 08:45 Blood Pressure Mean 106 09/20/23 08:45 Pulse Oximetry 99 09/20/23 08:45 Respiratory End-tidal CO2 30 09/17/23 09:00 Oxygen Delivery Method Room Air 09/17/23 09:00 Oxygen Flow Rate 0 03/25/24 09:00 Pain Level 4 09/20/23 08:45 Comment Patient reports pain at this time. Additional pain meds given. 09/18/23 03:45 Intake & Output 09/19/23 09/19/23 09/20/23 11:59 23:59 11:59 Other: Urine Color Pale
--- NOTE | 2023-09-27 00:55 | ROE_ITS ---
Date of service: 09/17/23 Time of Service: 07:30 Operative Note Operative Note DATE OF PROCEDURE: 09/17/23 PRE-OP DIAGNOSIS: Intrauterine @39.3wks, failure to descend POST-OP DIAGNOSIS: same PROCEDURE: Primary lower transverse section SURGEON: Chelo Mancilla ASSISTING SURGEON: Myriam Mcdaniel ANESTHESIA TYPE: Spinal Refer to Anesthesia Record ESTIMATED BLOOD LOSS: 800 COMPLICATIONS: None Patient was transported to: PACU Patient's condition: stable Indications: The patient had presented in active labor and progressed to fully dilated. She pushed for about 3hrs with minimal descent of the head and maternal exhaustion and opted for delivery. Findings: Female infant, Apgars 7/9 Normal appearing uterus, ovaries and tubes. Uterine incision extended into the left side of the cervix. Procedure Description: After informed consent was signed the patient was taken to the operating room. She was given spinal anesthesia, SCDs were placed on her legs and a garcia catheter was introduced into her bladder. The heart rate was checked and was normal. She underwent abdominal and vaginal prep and was draped in the dorsal supine position with a leftward tilt. The patient was tested and spinal anesthesia was found to be adequate. A time out was performed. The skin was injected with bupivocaine along the length of the planned incision.A skin incision was made with the scalpel and carried down to the underlying layer of fascia with blunt dissection. The fascia was incised on either side of the midline and the fascial incision extended laterally with a combination of sharp and blunt dissection. The inferior edge of the fascia was grasped with arcadio clamps and tented up and dissected down with a combination of sharp and blunt dissection. Then the superior edge of the fascial incision was grasped with arcadio clamps and tented up and dissected down with a combination of sharp and blunt dissection. The rectus muscles were in the midline and the peritoneum was entered bluntly. The peritoneal incision was extended laterally with blunt dissection. The bladder blade was inserted. A transverse incision was made in the lower uterine segment with the scalpel. The incision was extended superiorly and inferiorly with blunt pressure. The infants head delivered with fundal pressure followed by the shoulders and the rest of the body. The cord was milked toward the baby and after 1min it was clamped x2 and cut. The baby was handed to the charcoal burner beehive kiln. The cord was doubly clamped for cord gasses if needed. Cord blood was collected. The placenta delivered with fundal massage and gentle cord traction and appeared to be intact. The uterus was exteriorized and cleared of clots and debris. The uterine incision was closed with 0-vicryl in a running locked fashion with a second layer of suture imbricating the first. There was bleeding on the lower left side where the incision extended down into the cervix. This was closed with an extra 3-0 suture with good hemostasis. The uterus was placed back into the abdominal cavity. Clots were cleared from the peritoneal cavity with lap sponges. The incision was inspected once again and good hemostasis was noted. There was good hemostasis of the rectus muscles. The fascia was closed with 0- vicryl in a running unlocked fashion. The subcuticular layer was irrigated and closed with interrupted sutures of 3-0 vicryl. The skin was closed with 4-0 vicryl in a running subcuticular fashion. The incision was cleaned. Mastisol and steristrips were placed. A dressing was placed. The fundus was palpated to be firm. The patient was moved to the stretcher and taken to the recovery room in stable condition.
== END 2023-09-20 13:15 | disposition home or self-care (01) | DRG 788 ==
LOC: OBS 09-17 06:42 → BCD 09-17 07:53 → OBS 09-17 07:54
PROVIDERS: Obstetrics & Gynecology; Admitting Provider Advanced Practice Midwife; PCP Advanced Practice Midwife; Visit Provider Advanced Practice Midwife
PROC: 10D00Z1 Extraction of Products of Conception, Low, Open Approach (ICD-10-PCS; CPT 59514; principal; 2023-09-17 07:30)
DX: O75.81 Maternal exhaustion complicating labor and delivery; O76 Abnormality in fetal heart rate and rhythm complicating labor and delivery; O99.62 Diseases of the digestive system complicating childbirth; Z37.0 Single live birth; Z3A.39 39 weeks gestation of pregnancy; O62.1 Secondary uterine inertia; O26.893 Other specified pregnancy related conditions, third trimester; Z67.91 Unspecified blood type, Rh negative; K59.00 Constipation, unspecified; Z86.16 Personal history of COVID-19
CPT/HCPCS: 59514; 80053; 85027; 86850; 86900; 86901; 59025; G0378; J0131; J0456; J0665; J0690; J1100; J1885; J2274; J2310; J2371; J2405; J3010

== ENCOUNTER 2024-12-15 10:42 | Outpatient (CLI) | payer BC, SELFPAY ==
[2024-12-15 11:23] LABS: TSH (W/Ref FT4) 6.75 uIU/mL (0.36-3.74)
[2024-12-15 11:42] LABS: FREE T4 0.79 ng/dL (0.76-1.46)
[2024-12-15 18:25] LABS: Prolactin 4.2 ng/mL (See Note)
[2024-12-15 18:27] LABS: FSH 6.9 mIU/mL (See Note); LH 2.7 mIU/mL (See Note)
[2024-12-15 18:31] LABS: Progesterone <0.2 ng/mL (See Table)
[2024-12-16 17:57] LABS: Antimullerian Hormone 0.84 ng/mL (0.15-7.5)
[2024-12-18 12:40] LABS: Lab Add On Test DONE
[2024-12-18 13:28] LABS: Estradiol, Mass Spectrometry 53 pg/mL; Estrone 35 pg/mL
[2024-12-19 10:35] LABS: Thyroglobulin Antibody 28 U/mL (<=60); Thyroperoxidase Antibody <28 U/mL (<=60)
[2024-12-24 08:43] LABS: Testosterone, Total 13 ng/dL (8-60)
== END 2024-12-15 10:43 | disposition home or self-care (01) ==
LOC: LBO 10:43
PROVIDERS: PCP Advanced Practice Midwife; Visit Provider Advanced Practice Midwife
DX: Z31.69 Encounter for other general counseling and advice on procreation (principal)
CPT/HCPCS: 36415; 84403; 86376; 82670; 82679; 83001; 83002; 83520; 84144; 84146; 84439; 84443

== ENCOUNTER 2025-04-03 03:00 | Outpatient (CLI) | payer BC, SELFPAY ==
[2025-04-03 12:46] LABS: Abs Immature Grans 0.02 10^3/uL (0.0-0.06); HCT 40.1 % (36.0-46.0); HGB 13.9 g/dL (11.2-15.7); Immature Grans % 0.3 %; MCH 31.8 pg (27.0-33.0); MCHC 34.7 % (32.0-36.0); MCV 92 fL (80-95); MPV 8.5 fL (8.0-11.0); Platelet Count 263 10^3/uL (130-400); RBC 4.37 10^6/uL (3.93-5.22); RDW 12.3 % (11.7-14.6); RDW-SD 41.2 fL; WBC 6.70 10^3/uL (4.4-10.8)
[2025-04-03 13:04] LABS: Hemoglobin A1C 4.5 % (<5.7)
[2025-04-03 13:32] LABS: TSH (W/Ref FT4) 4.30 uIU/mL (0.36-3.74)
[2025-04-05 12:48] LABS: HIV-1/2 Ag & Ab Screen Negative (Negative)
[2025-04-06 10:12] LABS: Rubella IgG Ab (UVM) Positive (See Note)
[2025-04-06 10:38] LABS: Hepatitis C Ab w Rflx HCV PCR Negative (Negative)
[2025-04-06 14:17] LABS: Syphilis IgG w/Reflex Nonreactive (Nonreactive)
== END 2025-04-03 03:01 | disposition home or self-care (01) ==
PROVIDERS: Visit Provider Advanced Practice Midwife
DX: Z34.91 Encounter for supervision of normal pregnancy, unspecified, first trimester (principal)
CPT/HCPCS: 36415; 86787; 86803; 86850; 86900; 86901; 87340; 87389; 83036; 83520; 84439; 84443; 85025; 86762; 86780

== ENCOUNTER 2025-04-03 11:56 | Outpatient (REF) | payer BC, SELFPAY ==
[2025-04-06 12:41] LABS: Chlamydia Result Negative (Negative); GC Result Negative (Negative)
== END 2025-04-03 11:57 | disposition home or self-care (01) ==
LOC: LBN 11:56
PROVIDERS: Visit Provider Advanced Practice Midwife
DX: Z34.91 Encounter for supervision of normal pregnancy, unspecified, first trimester (principal)
CPT/HCPCS: 87491; 87591; 87086

== ENCOUNTER 2025-05-01 09:34 | Outpatient (REF) | payer BC, SELFPAY | END 2025-05-01 09:35 | disposition home or self-care (01) | LOC: LBN 09:34 | PROVIDERS: Visit Provider Advanced Practice Midwife | DX: N89.8 Other specified noninflammatory disorders of vagina (principal); N93.9 Abnormal uterine and vaginal bleeding, unspecified | CPT/HCPCS: 87480; 87510; 87660 ==

== ENCOUNTER 2025-05-19 01:50 | Outpatient (CLI) | payer BC, SELFPAY ==
[2025-05-19 13:02] LABS: TSH (W/Ref FT4) 4.29 uIU/mL (0.55-4.78)
== END 2025-05-19 01:51 | disposition home or self-care (01) ==
LOC: LBO 01:50
PROVIDERS: Visit Provider Advanced Practice Midwife
DX: E03.9 Hypothyroidism, unspecified (principal)
CPT/HCPCS: 36415; 84443

== ENCOUNTER 2025-05-29 09:13 | Outpatient (CLI) | payer BC, SELFPAY ==
[2025-05-29 09:59] LABS: TSH 3.07 uIU/mL (0.55-4.78)
== END 2025-05-29 09:14 | disposition home or self-care (01) ==
LOC: LBO 09:14
PROVIDERS: Visit Provider Advanced Practice Midwife
DX: E03.8 Other specified hypothyroidism (principal)
CPT/HCPCS: 36415; 84443